=== PATIENT | male | born 1955 | race Caucasian/White ===

== ENCOUNTER 2018-04-13 15:01 | Inpatient (IN) | payer MEDICAID ==
[~2018-04-13] VITALS: Ht 172.7 cm; Wt 61.7 kg
--- NOTE | ~2018-04-13 | DS ---
[place], [place] DISCHARGE SUMMARY NAME: LUPILLO HERRERA UNIT #: [id number] ROOM: 317 DOCTOR: KARNIE LOMAS MD BIRTHDATE: [birth year] DOS: 04/19/2018 CHIEF COMPLAINT: "I have been so depressed, was my only way out." HISTORY OF PRESENT ILLNESS: This is a 62-year-old white male who was admitted to the [facility] Unit at [facility] due to worsening depression with suicidal ideation and a plan. The patient states that he tried to kill himself with a gun on Tuesday, but before he could do this, his had called police to intervene and they brought him to the Emergency Room to be evaluated. The patient reports a lengthy history of alcohol abuse and he had been clean and sober for a long time until he relapsed. He went to [place] to detox, came home, felt increasingly depressed, so he drank again specifically to get the courage to kill himself. He has endorsed poor sleep with difficulty falling asleep, sleep continuity disturbance, supervisor photoengraving awakening, anergia, anhedonia, hopeless, helpless feelings, crying spells, and inability to cope. He also has poor appetite and has lost approximately 60 pounds in 2 years. He is admitted now to rule out any organic factors to attempt to stabilize on medication, to engage in individual and mckeon milieu activity and then determine the least restrictive environment to which he could be discharged too. SUMMARY OF HOSPITAL COURSE: The patient was admitted to the unit where screening examination showed him to have a low vitamin B12 level of 316 and for this reason, vitamin B12 injection of 1000 mcg IM monthly was given. Because of his significant sleep issue and poor appetite, Remeron was chosen as an antidepressant at a dose of 15 mg at bedtime. Initially, Vistaril 50 mg 3 times a day was used as an antianxiety agent and Rozerem was also used as a sleep aid, neither of these worked well. He continued to complain of depression with anxiety. Given his history of substance abuse, a non-addictive option was utilized one that would also augment the effectiveness of the antidepressant. Seroquel 50 mg 3 times a day was chosen. He did note that the nighttime dose was not strong enough to initiate sleep, so the dose was eventually increased to 50 mg twice daily and 100 mg at bedtime with good effect. He did request that he has one more night on this dose to make certain that it was consistent in work, which it did and when that had happened, he was discharged then back home. MENTAL STATUS AT DISCHARGE: The patient is alert and oriented to person, place, and time. Mood is euthymic. Affect appropriate. There is no terrie, hypomania or psychosis. He convincingly denies suicidal thoughts, homicidal thoughts or any self-injurious thoughts. Memory is fully intact. DIAGNOSIS AT DISCHARGE: Major depression, recurrent, severe. PLAN: All of his prescriptions have been written and will be sent with him. He will have followup in the community postdischarge. [place], [place] DISCHARGE SUMMARY NAME: LUPILLO HERRERA ACCLaura #: [id number] UNIT #: [id number] ROOM: [facility] DOCTOR: KARINE LOMAS MD BIRTHDATE: [birth year] KARINE LOMAS MD CM:DISCHARG [id number] KARINE LOMAS MD 04/19/181914 interface
--- NOTE | ~2018-04-13 | PR ---
[place], [place] PROGRESS NOTE NAME: LUPILLO HERRERA UNIT #: [id number] ROOM: 317 DOCTOR: KARINE LOMAS MD BIRTHDATE: [birth year] DOS: 04/17/2018 CHIEF COMPLAINT: "That new medicine works better, but I feel a little hungover. Is that normal?" SUMMARY OF THE VISIT: The patient was interviewed as he was resting in bed. He reports he got up, had breakfast and was in bed mainly because he was cold. He did report that he felt that the new medicine was more effective than the previous meds and that his anxiety level was much less. He did note; however, that he did have some ongoing somnolence from it and wondered if this was normal and if it would dissipate. He did state he slept better, but had some continued trouble with initiating sleep. MENTAL STATUS: He is alert and oriented. Mood does seem to be trending towards euthymia. Affect is more appropriate. There is no terrie, hypomania or psychosis. Short-term memory, long-term memory and intermediate memory are intact. PLAN: I will increase the Seroquel from 50 mg 3 times a day to 50 mg twice a day and 100 mg at bedtime. Continue to engage in individual and mckeon milieu activity, returning to the least restrictive environment when psychiatrically stable. KARINE LOMAS MD CM:PNTRANS 9 11 KARINE LOMAS MD 04/17/182209 interface
--- NOTE | ~2018-04-13 | PR ---
[place], [place] PROGRESS NOTE NAME: LUPILLO HERRERA UNIT #: [id number] ROOM: 317 DOCTOR: PHD FREIDA OVALLES BIRTHDATE: [birth year] DOS: 04/17/2018 SUBJECTIVE: Met with the patient for individual psychotherapy. The patient reported finding more of a "desire to live" over the weekend. Mood was anxious and depressed, and affect was restricted. He firmly denied suicidal and homicidal ideation. Discussed the patient's fears about his relationship and plans to maintain his sobriety. Utilize CBT and supportive therapy interventions, the patient appeared to benefit. Plan to continue as needed. Blanca Ovalles, CM:FOX [phone] PHD FREIDA OVALLES 04/18/18 0439 interface
--- NOTE | ~2018-04-13 | PR ---
[place], [place] PROGRESS NOTE NAME: LUPILLO HERRERA UNIT #: [id number] ROOM: 317 DOCTOR: KARINE LOMAS MD BIRTHDATE: [birth year] DOS: 04/15/2018 CHIEF COMPLAINT: "I didn't sleep at all dark." SUMMARY OF THE VISIT: The patient was interviewed as he sat at the end of the dining area, watching television. He reported that he tossed and turned all night and his anxiety through the day is through the roof. He outwardly does look anxious and he was wringing his hands constantly. He convincingly denies any medication side effects and denies any sedation, somnolence or other side effects. MENTAL STATUS: He is alert and oriented. Mood does seem to be depressed with anxious overtones. Affect is somewhat blunted. There is no terrie, hypomania or psychosis. Memory for the most part is intact. PLAN: I will increase his Vistaril from 50 mg 3 times a day to 100 mg 3 times a day, trying to use in a non-addictive agent. I will add Zyprexa at bedtime 5 mg to augment the effectiveness of the antidepressant as well as to help with the anxiety component, improving sleep and appetite along the way. Engage in individual and mckeon milieu activity with the plan to return to the least restrictive environment when psychiatrically stable. KARINE LOMAS MD CM:PNTRANS [id number] [phone] KARINE LOMAS MD 04/15/18 1537 interface
--- NOTE | ~2018-04-13 | PR ---
[place], [place] PROGRESS NOTE NAME: LUPILLO HERRERA UNIT #: [id number] ROOM: 317 DOCTOR: KARINE LOMAS MD BIRTHDATE: [birth year] DOS: 04/16/2018 CHIEF COMPLAINT: "One medicine made me feel like I was going to jump out of my skin." SUMMARY OF THE VISIT: The patient was interviewed as he was resting in bed. He reports that the Zyprexa made him feel more wild and anxious and somewhat on edge. He also states it woke him up and he did not sleep yet again. MENTAL STATUS: He is alert and oriented. Mood does still seem to be depressed with some anxious overtones, but the depression seems to be clearing and anxiety seems to be the most common symptom seen. There is no terrie, hypomania or psychosis. Memory is intact. PLAN: I will discontinue the Vistaril and the Zyprexa at this point due to ineffectiveness. I will change Rozerem to 8 mg at bedtime straight, not p.r.n. and add Seroquel 50 mg t.i.d. KARINE LOMAS MD CM:PNTRANS 1 25 KARINE LOMAS MD 04/16/182222 interface
--- NOTE | ~2018-04-13 | WRIGHTHP ---
[place], [place] PATIENT HISTORY AND PHYSICAL EXAM NAME: LUPILLO HERRERA UNIT #: [id number] ROOM: 317 DOCTOR: KARINE LOMAS MD BIRTHDATE: [birth year] DOS: 04/14/2018 INITIAL PSYCHIATRIC EVALUATION CHIEF COMPLAINT: "I have just been so depressed; was my only way out." HISTORY OF PRESENT ILLNESS: This is a 62-year-old white male who was admitted to the [facility] Unit at [facility] due to worsening depression with suicidal ideation and a plan. The patient states he tried to kill himself with a gun on Tuesday, but before he did this, his had called the police and they intervened and admitted him to the hospital. The patient reports he has a lengthy history of alcohol abuse and had been clean and sober for some time, but relapsed. He then went in to [place] detox, came back home, felt increasingly depressed and drank again so that he would have courage to kill himself. He endorses poor sleep with difficulty falling asleep, sleep continuity disturbance, glass cutter helper awakening, anergia, anhedonia, hopeless, helpless feelings, crying spells, and inability to cope. The patient reports he has lost approximately 60 pounds in 2 years because he has no appetite. He is admitted now to rule out any organic factors, to stabilize on medication, to engage in individual and mckeon milieu activity, returning then to the least restrictive environment when psychiatrically stable. PAST MEDICAL HISTORY: Remarkable for osteoarthritis, GERD, hyperlipidemia, chronic low back pain, protein calorie malnutrition, scoliosis, spinal stenosis, vitamin D deficiency. SOCIAL HISTORY: The patient is a recovering alcoholic who has relapsed. He does not use illicit drugs. He is a cigarette smoker and has been for some time. ALLERGIES: He lists allergies to CATS. FAMILY HISTORY: There is a family history of congestive heart failure and liver cancer. STRENGTHS: Willingness to seek help. Good verbal skills, ambulatory. WEAKNESSES: Chronic substance abuse issues, poor coping skills. MENTAL STATUS: He is alert and oriented to person, place and time. Mood is overwhelmingly depressed with anxious overtones. He endorses multiple neurovegetative symptoms including suicidal thoughts and a plan. There is no terrie or hypomania. There are no auditory or visual hallucinations. No delusions, no paranoia. Short term, intermediate and long-term memories are intact. DIAGNOSIS: Major depression, recurrent, severe. PLAN: Screening examination show him to have a low normal B12 level of 316. I will treat with vitamin B12 injection 1000 mcg IM monthly. I have already [place], [place] PATIENT HISTORY AND PHYSICAL EXAM NAME: LUPILLO HERRERA UNIT #: [id number] ROOM: 317 DOCTOR: KARINE LOMAS MD BIRTHDATE: [birth year] started him on Remeron 15 mg at bedtime for depression. I will add Vistaril 50 mg t.i.d. as a non-addictive antianxiety agent and also use Rozerem p.r.n. as a sleep agent. Engage in individual and mckeon milieu activity, consult Blanca Ovalles, a psychologist for counseling, returning then to the least restrictive environment when psychiatrically stable. KARINE LOMAS MD CM:HISPHYS:PATIENT HISTORY AND PHYSICAL EXAMINATION 9 KARINE LOMAS MD 04/14/18917 interface
--- NOTE | ~2018-04-13 | PR ---
[place], [place] PROGRESS NOTE NAME: LUPILLO HERRERA UNIT #: [id number] ROOM: 317 DOCTOR: KARINE LOMAS MD BIRTHDATE: [birth year] DOS: 04/18/2018 CHIEF COMPLAINT: "Doc, I slept well. That is the best I have slept in a long time." SUMMARY OF THE VISIT: The patient was interviewed as he was sitting finishing his breakfast with some male peers. He reported that he fell asleep quickly, slept through the night and feels rested. He would like to see if this happens the second night in a row and then feels confident he can be discharged. Mood does seem to be strongly trending towards euthymia and affect is more appropriate. MENTAL STATUS: He is alert and oriented to person, place and time. Mood does seem to be strongly trending towards euthymia and affect is more appropriate. There is no terrie, hypomania or psychosis. He convincingly denies suicidal thoughts, homicidal thoughts or any self-injurious thoughts. Memory for the most part is fully intact. PLAN: His prescriptions have already been prescribed to [facility]. We will monitor over the next 24 hours and proceed with discharge. KARINE LOMAS MD CM:PNTRANS 48 KARINE LOMAS MD 04/18/186 interface
[~2018-04-13 15:01] MED LIST: MELATONIN10 M2 PO; NICODERM T; OMEPRAZOLE D/R20 MG PO; PERCOCET 7.5-31 EACH PO
[2018-04-13 15:30] VITALS: BP 116/77
[2018-04-13 19:50] VITALS: BP 120/74
[2018-04-14 07:10] VITALS: BP 142/84
[2018-04-14 07:14] LABS: ALBUMIN 3.1 gm/dl (3.1-4.5); ALKALINE PHOSPHATASE 57 U/L (45-117); BUN 12 mg/dl (7-24); CHLORIDE 102 mmol/L (98-107); CREATININE 0.67 mg/dL (0.70-1.30); POTASSIUM 3.4 mmol/L (3.5-5.1); SGOT/AST 11 IU/L (3-35); SGPT/ALT 16 U/L (12-78); SODIUM 140 mmol/L (136-145); TOTAL PROTEIN 5.6 gm/dL (6.4-8.2)
[2018-04-14 20:00] VITALS: BP 115/68
[2018-04-15 07:57] VITALS: BP 121/80
[2018-04-15 19:48] VITALS: BP 108/69
[2018-04-16 07:50] VITALS: BP 114/78
[2018-04-16 20:03] VITALS: BP 113/60
[2018-04-17 07:44] VITALS: BP 117/76
[2018-04-17 19:28] VITALS: BP 113/63
[2018-04-18 07:34] VITALS: BP 144/64
[2018-04-18] MEDS ORDERED: B121000 MCG/1 IM (09:21)
[2018-04-18] MEDS ORDERED: QUETIAPINE FUM100 M3 PO (09:21)
[2018-04-18] MEDS ORDERED: QUETIAPINE FUMA50 M1 PO (09:21)
[2018-04-18] MEDS ORDERED: MIRTAZAPINE15 M2 PO (09:21)
[2018-04-18 19:46] VITALS: BP 126/72
[2018-04-19 07:48] VITALS: BP 117/65
[2018-06-21] MEDS ORDERED: PERCOCET 7.5-31 EACH PO (16:03)
== END 2018-04-19 14:06 | disposition home or self-care (01) | DRG 885 ==
LOC: 3N 15:01
PROVIDERS: Psychiatry & Neurology Psychiatry
DX: F33.2 Major depressive disorder, recurrent severe without psychotic features (principal); R45.851 Suicidal ideations; E44.1 Mild protein-calorie malnutrition; K21.9 Gastro-esophageal reflux disease without esophagitis; E87.6 Hypokalemia; E55.9 Vitamin D deficiency, unspecified; E78.5 Hyperlipidemia, unspecified; F10.21 Alcohol dependence, in remission; M41.9 Scoliosis, unspecified; M48.061 Spinal stenosis, lumbar region without neurogenic claudication; F41.9 Anxiety disorder, unspecified; M19.90 Unspecified osteoarthritis, unspecified site; G89.29 Other chronic pain; Z91.048 Other nonmedicinal substance allergy status; Z82.49 Family history of ischemic heart disease and other diseases of the circulatory system; Z80.8 Family history of malignant neoplasm of other organs or systems; Z71.6 Tobacco abuse counseling; Z72.0 Tobacco use; Z88.8 Allergy status to other drugs, medicaments and biological substances; Z79.899 Other long term (current) drug therapy; Z68.20 Body mass index [BMI] 20.0-20.9, adult

== ENCOUNTER 2018-05-20 18:46 | Inpatient (IN) | payer SELFPAY ==
[~2018-05-20] VITALS: Ht 172.7 cm; Wt 65.9 kg
--- NOTE | ~2018-05-20 | EKG ---
[place], [place] ELECTROCARDIOGRAM REPORT NAME: LUPILLO HERRERA UNIT #: [id number] ROOM: 525 DOCTOR: CARMEL DRAFT REPORT BIRTHDATE: [birth year] [facility] Test Date: 2018-05-20 Test Time: 21:58:08 Pat Name: LUPILLO HERRERA Department: Room: [facility] Gender: M Cone Treater: JOANNE : 1955 Requested By: MISHEL HERRERA Order Number: [id number] Reading MD: Santi Mcmillan MD Measurements Intervals [place] Rate: 80 P: 75 [place]: 168 QRS: 82 QRSD: 94 T: QT: 396 QTc: 457 Interpretive Statements Sinus rhythm Left atrial enlargement Borderline right axis deviation Anteroseptal infarct, old Borderline repolarization abnormality Compared to ECG 04/12/2018 07:24:08 Atrial abnormality now present Myocardial infarct finding now present Electronically Signed On 05-21-2018 11:03:01 PDT by Santi Mcmillan MD CM:EKGRPT:ELECTROCARDIOGRAM REPORT 1103 MISHEL BURT DRAFT REPORT MISHEL HERRERA M.D.
--- NOTE | ~2018-05-20 | EKG ---
[place], [place] ELECTROCARDIOGRAM REPORT NAME: LUPILLO HERRERA UNIT #: [id number] ROOM: 525 DOCTOR: CARMEL DRAFT REPORT BIRTHDATE: [birth year] [facility] Test Date: 2018-05-20 Test Time: 18:48:09 Pat Name: LUPILLO HERRERA Department: Room: [facility] Gender: M Warehouse Selector: ELISA : 1955 Requested By: MISHEL HERRERA Order Number: [id number] Reading MD: Santi Mcmillan MD Measurements Intervals [place] Rate: 114 P: 83 AK: 176 QRS: 79 QRSD: 91 T: -63 QT: 301 QTc: 415 Interpretive Statements Sinus tachycardia Right atrial enlargement Repol abnrm suggests ischemia, diffuse leads Compared to ECG 04/12/2018 07:24:08 Atrial abnormality now present Early repolarization now present Possible ischemia now present Sinus rhythm no longer present Electronically Signed On 05-21-2018 11:01:05 PDT by Santi Mcmillan MD CM:EKGRPT:ELECTROCARDIOGRAM REPORT [id number] MISHEL BURT DRAFT REPORT MISHEL HERRERA M.D.
--- NOTE | ~2018-05-20 | EKG ---
[place], [place] ELECTROCARDIOGRAM REPORT NAME: LUPILLO HERRERA UNIT #: [id number] ROOM: 525 DOCTOR: CARMEL DRAFT REPORT BIRTHDATE: [birth year] [facility] Test Date: 2018-05-21 Test Time: 00:34:09 Pat Name: LUPILLO HERRERA Department: Room: [facility] Gender: M Model Making Supervisor: TANESHA : 1955 Requested By: MISHEL HERRERA Order Number: [id number] Reading MD: Santi Mcmillan MD Measurements Intervals [place] Rate: 84 P: 79 [place]: 157 QRS: 77 QRSD: 92 T: 10 QT: 372 QTc: 440 Interpretive Statements Sinus rhythm Minimal ST depression, inferior leads Baseline wander in lead(s) V1,V4 Compared to ECG 04/12/2018 07:24:08 ST (T wave) deviation now present Electronically Signed On 05-21-2018 11:03:12 PDT by Santi Mcmillan MD CM:EKGRPT:ELECTROCARDIOGRAM REPORT [id number] 1103 MISHEL BURT DRAFT REPORT MISHEL HERRERA M.D.
[~2018-05-20 18:46] MED LIST changes: +B121000 MCG/1 IM; +MIRTAZAPINE15 M2 PO; +QUETIAPINE FUM100 M3 PO; +QUETIAPINE FUMA50 M1 PO
[2018-05-20 18:50] VITALS: BP 127/82
[2018-05-20 19:05] LABS: BASO # 0.1 10*3/uL (0.0-0.1); BASO % 0.7 % (0.0-1.0); EOS # 0.1 10*3/uL (0.0-0.4); EOS % 1.9 % (1.0-4.0); HEMATOCRIT 44.2 % (42.0-52.0); HEMOGLOBIN 15.5 g/dl (14.0-18.0); LYMPH # 2.8 10*3/uL (1.3-4.4); LYMPH % 40.5 % (27.0-41.0); MEAN CELL VOLUME 95.9 fl (80.0-94.0); MEAN CORPUSCULAR HGB 33.6 pg (27.0-31.0); MEAN CORPUSCULAR HGB CONC 35.1 g/dl (33.0-37.0); MEAN PLATELET VOLUME 8.3 fl (9.6-12.3); MONO # 0.4 10*3/uL (0.1-1.0); MONO % 5.4 % (3.0-9.0); NEUT # 3.5 10*3/uL (2.3-7.9); NEUT % 51.4 % (47.0-73.0); PLATELET COUNT AUTOMATED 177 10*3/uL (130-400); RED BLOOD COUNT 4.61 10*6/uL (4.50-5.90); RED CELL DISTRI WIDTH 14.7 % (0-14.5); WHITE BLOOD COUNT 6.8 10*3/uL (4.8-10.8)
[2018-05-20 19:15] LABS: ACT PARTIAL THROMBO TIME 24.1 SECONDS (20.8-31.5)
[2018-05-20 19:22] LABS: ALBUMIN 3.8 gm/dl (3.1-4.5); ALKALINE PHOSPHATASE 80 U/L (45-117); BUN 8 mg/dl (7-24); CHLORIDE 111 mmol/L (98-107); CREATININE 0.87 mg/dL (0.70-1.30); POTASSIUM 3.3 mmol/L (3.5-5.1); SGOT/AST 22 IU/L (3-35); SGPT/ALT 16 U/L (12-78); SODIUM 147 mmol/L (136-145); TOTAL PROTEIN 7.2 gm/dL (6.4-8.2)
[2018-05-20 19:24] LABS: TROPONIN I < 0.015 ng/ml (<0.045)
[2018-05-20 19:33] LABS: BILIRUBIN NEGATIVE (NEGATIVE); BLOOD 1+ (NEGATIVE); CLARITY SL CLOUDY (CLEAR); COLOR YELLOW (YELLOW); GLUCOSE NEGATIVE (NEGATIVE); KETONE NEGATIVE (NEGATIVE); LEUKO ESTERASE NEGATIVE (NEGATIVE); NITRITE NEGATIVE (NEGATIVE); SPECIFIC GRAVITY 1.025 (1.005-1.030); UROBILINOGEN 0.2 E.U./dl (0.2-1.0)
[2018-05-20 19:41] LABS: BACTERIA TRACE; EPITHELIAL CELLS 0-2; MUCOUS 1+; URINE AMPHETAMINES < 1000 (1000ng/ml); URINE BARBITURATES < 200 (200ng/ml); URINE BENZODIAZEPINES < 200 (200ng/ml); URINE CANNABINOIDS (THC) < 50 (50ng/ml); URINE COCAINE < 300 (300ng/ml); URINE METHADONE < 300 (300ng/ml); URINE OPIATES < 300 (300ng/ml)
[2018-05-20 19:42] LABS: URINE PHENCYCLIDINE < 25 (25ng/ml)
[2018-05-20 20:00] VITALS: BP 106/65
[2018-05-20 20:55] VITALS: BP 101/61
[2018-05-20 22:00] VITALS: BP 113/71
[2018-05-21] VITALS: BP 120/68
[2018-05-21 07:08] LABS: BASO % 0.6 % (0.0-1.0); EOS # 0.1 10*3/uL (0.0-0.4); EOS % 1.8 % (1.0-4.0); LYMPH # 1.5 10*3/uL (1.3-4.4); LYMPH % 22.6 % (27.0-41.0); MEAN CELL VOLUME 97.6 fl (80.0-94.0); MEAN CORPUSCULAR HGB 33.5 pg (27.0-31.0); MEAN CORPUSCULAR HGB CONC 34.3 g/dl (33.0-37.0); MEAN PLATELET VOLUME 8.8 fl (9.6-12.3); MONO # 0.5 10*3/uL (0.1-1.0); NEUT # 4.6 10*3/uL (2.3-7.9); NEUT % 67.6 % (47.0-73.0); PLATELET COUNT AUTOMATED 150 10*3/uL (130-400); RED BLOOD COUNT 3.79 10*6/uL (4.50-5.90); RED CELL DISTRI WIDTH 14.6 % (0-14.5); WHITE BLOOD COUNT 6.8 10*3/uL (4.8-10.8)
[2018-05-21 07:11] LABS: HEMOGLOBIN 12.7 g/dl (14.0-18.0)
[2018-05-21 07:15] LABS: BUN 11 mg/dl (7-24); CHLORIDE 108 mmol/L (98-107); CREATININE 0.82 mg/dL (0.70-1.30); PHOSPHOROUS 3.1 mg/dL (2.5-4.9); POTASSIUM 3.6 mmol/L (3.5-5.1); SODIUM 143 mmol/L (136-145)
[2018-05-21 07:23] LABS: ETHYL ALCOHOL < 3.0 mg/dl (<3)
[2018-05-21 08:00] VITALS: BP 126/62
[2018-05-21 08:15] VITALS: BP 148/88
[2018-05-21 12:00] VITALS: BP 148/88
[2018-05-21 16:00] VITALS: BP 136/77
[2018-05-21 20:00] VITALS: BP 136/74
[2018-05-22] VITALS: BP 130/67
[2018-05-22 06:48] LABS: ALBUMIN 3.4 gm/dl (3.1-4.5); ALKALINE PHOSPHATASE 108 U/L (45-117); BUN 10 mg/dl (7-24); CHLORIDE 107 mmol/L (98-107); CREATININE 0.77 mg/dL (0.70-1.30); PHOSPHOROUS 2.1 mg/dL (2.5-4.9); POTASSIUM 3.9 mmol/L (3.5-5.1); SGOT/AST 18 IU/L (3-35); SGPT/ALT 14 U/L (12-78); SODIUM 140 mmol/L (136-145); TOTAL PROTEIN 5.9 gm/dL (6.4-8.2)
[2018-05-22 07:03] LABS: HEMATOCRIT 34.9 % (42.0-52.0); HEMOGLOBIN 12.1 g/dl (14.0-18.0); MEAN CELL VOLUME 97.8 fl (80.0-94.0); MEAN CORPUSCULAR HGB 33.9 pg (27.0-31.0); MEAN CORPUSCULAR HGB CONC 34.7 g/dl (33.0-37.0); MEAN PLATELET VOLUME 9.7 fl (9.6-12.3); PLATELET COUNT AUTOMATED 125 10*3/uL (130-400); RED BLOOD COUNT 3.57 10*6/uL (4.50-5.90); RED CELL DISTRI WIDTH 14.3 % (0-14.5); WHITE BLOOD COUNT 9.8 10*3/uL (4.8-10.8)
[2018-05-22 07:52] VITALS: BP 134/80
[2018-05-22 08:00] VITALS: BP 120/68
[2018-05-22 08:12] LABS: BASOPHILS 1 % (0-1); PLATELET SUFFICIENCY LOW (NORMAL); SCHISTOCYTES FEW; TOTAL CELLS COUNTED 100 #CELLS
[2018-06-21] MEDS ORDERED: PERCOCET 7.5-31 EACH PO (16:03)
== END 2018-05-22 09:56 | disposition left against medical advice (07) | DRG 190 ==
LOC: ED 18:46 → EDHOLD 20:28 → 5E 20:28
PROVIDERS: Emergency Medicine; Internal Medicine; Nurse Practitioner Family; Student in an Organized Health Care Education/Training Program
DX: J44.0 Chronic obstructive pulmonary disease with (acute) lower respiratory infection (principal); J18.9 Pneumonia, unspecified organism; E87.0 Hyperosmolality and hypernatremia; F10.230 Alcohol dependence with withdrawal, uncomplicated; J98.01 Acute bronchospasm; J44.1 Chronic obstructive pulmonary disease with (acute) exacerbation; K21.9 Gastro-esophageal reflux disease without esophagitis; E87.6 Hypokalemia; E87.8 Other disorders of electrolyte and fluid balance, not elsewhere classified; E83.41 Hypermagnesemia; E83.51 Hypocalcemia; R00.0 Tachycardia, unspecified; D75.89 Other specified diseases of blood and blood-forming organs; R73.9 Hyperglycemia, unspecified; M41.9 Scoliosis, unspecified; M48.061 Spinal stenosis, lumbar region without neurogenic claudication; M19.90 Unspecified osteoarthritis, unspecified site; M54.5 Low back pain; E78.00 Pure hypercholesterolemia, unspecified; F41.9 Anxiety disorder, unspecified; F32.9 Major depressive disorder, single episode, unspecified; Z53.21 Procedure and treatment not carried out due to patient leaving prior to being seen by health care provider; F10.220 Alcohol dependence with intoxication, uncomplicated; R94.31 Abnormal electrocardiogram [ECG] [EKG]; G47.00 Insomnia, unspecified; G89.4 Chronic pain syndrome; R07.89 Other chest pain; Z72.0 Tobacco use; Z71.6 Tobacco abuse counseling; Z91.09 Other allergy status, other than to drugs and biological substances; Z79.899 Other long term (current) drug therapy; Z82.49 Family history of ischemic heart disease and other diseases of the circulatory system; Z82.0 Family history of epilepsy and other diseases of the nervous system; Z80.0 Family history of malignant neoplasm of digestive organs

== ENCOUNTER 2018-07-21 04:22 | Inpatient (IN) | payer SELFPAY ==
[2018-07-21] VITALS (7 sets, daily range): BP systolic 111–143; BP diastolic 67–82
[~2018-07-21] VITALS: Ht 172.7 cm; Wt 67.7 kg
--- NOTE | ~2018-07-21 | EKG ---
[place], [place] ELECTROCARDIOGRAM REPORT NAME: LUPILLO HERRERA UNIT #: [id number] ROOM: DOCTOR: EPIPHANY DRAFT REPORT BIRTHDATE: [birth year] [facility] Test Date: 2018-07-21 Test Time: 04:33:58 Pat Name: LUPILLO HERRERA Department: Room: Gender: Backup Sawyer: : 1955 Requested By: JG SHEEHAN Order Number: [id number] Reading MD: Measurements Intervals [place] Rate: 104 P: 81 [place]: 188 QRS: 84 QRSD: 98 T: -81 QT: 341 QTc: 449 Interpretive Statements Sinus tachycardia Biatrial enlargement Borderline right axis deviation Borderline repolarization abnormality Compared to ECG 06/21/2018 04:32:10 Atrial abnormality now present Sinus bradycardia no longer present CM:EKGRPT:ELECTROCARDIOGRAM REPORT 0433 [id number] JG DIXON DRAFT REPORT JG SHEEHAN DO
--- NOTE | ~2018-07-21 | EKG ---
[place], [place] ELECTROCARDIOGRAM REPORT NAME: LUPILLO HERRERA UNIT #: [id number] ROOM: 406 DOCTOR: CARMEL DRAFT REPORT BIRTHDATE: [birth year] [facility] Test Date: 2018-07-21 Test Time: 07:31:40 Pat Name: LUPILLO HERRERA Department: Room: 406 Gender: M Principal Technical Architect: : 1955 Requested By: JG SHEEHAN Order Number: [id number] Reading MD: Measurements Intervals [place] Rate: 78 P: 75 ID: 167 QRS: 76 QRSD: 97 T: 48 QT: 398 QTc: 454 Interpretive Statements Sinus rhythm Compared to ECG 06/21/2018 04:32:10 Sinus bradycardia no longer present CM:EKGRPT:ELECTROCARDIOGRAM REPORT 0731 0436 JG DIXON DRAFT REPORT JG SHEEHAN DO
--- NOTE | ~2018-07-21 | EKG ---
[place], [place] ELECTROCARDIOGRAM REPORT NAME: LUPILLO HERRERA UNIT #: [id number] ROOM: 406 DOCTOR: CARMEL DRAFT REPORT BIRTHDATE: [birth year] [facility] Test Date: 2018-07-21 Test Time: 10:28:13 Pat Name: LUPILLO HERRERA Department: Room: 406 Gender: M Health And Safety Specialist: : 1955 Requested By: JG SHEEHAN Order Number: [id number] Reading MD: Measurements Intervals [place] Rate: 87 P: 79 AL: 161 QRS: 79 QRSD: 91 T: 88 QT: 379 QTc: 456 Interpretive Statements Sinus rhythm Nonspecific T abnormalities, lateral leads Compared to ECG 06/21/2018 04:32:10 T-wave abnormality now present Sinus bradycardia no longer present CM:EKGRPT:ELECTROCARDIOGRAM REPORT 1028 0730 JG DIXON DRAFT REPORT JG SHEEHAN DO
[2018-07-21 04:50] LABS: BASO # 0.1 10*3/uL (0.0-0.1); BASO % 1.1 % (0.0-1.0); EOS # 0.2 10*3/uL (0.0-0.4); EOS % 2.5 % (1.0-4.0); HEMATOCRIT 48.3 % (42.0-52.0); HEMOGLOBIN 16.7 g/dl (14.0-18.0); LYMPH # 3.2 10*3/uL (1.3-4.4); LYMPH % 36.4 % (27.0-41.0); MEAN CORPUSCULAR HGB 34.6 pg (27.0-31.0); MEAN CORPUSCULAR HGB CONC 34.6 g/dl (33.0-37.0); MEAN PLATELET VOLUME 8.5 fl (9.6-12.3); MONO # 0.6 10*3/uL (0.1-1.0); MONO % 7.1 % (3.0-9.0); NEUT # 4.6 10*3/uL (2.3-7.9); NEUT % 52.6 % (47.0-73.0); PLATELET COUNT AUTOMATED 215 10*3/uL (130-400); RED BLOOD COUNT 4.83 10*6/uL (4.50-5.90); RED CELL DISTRI WIDTH 14.1 % (0-14.5); WHITE BLOOD COUNT 8.8 10*3/uL (4.8-10.8)
[2018-07-21 05:08] LABS: ALKALINE PHOSPHATASE 87 U/L (45-117); BUN 14 mg/dl (7-24); CHLORIDE 110 mmol/L (98-107); CREATININE 0.79 mg/dL (0.70-1.30); POTASSIUM 3.3 mmol/L (3.5-5.1); SGOT/AST 28 IU/L (3-35); SGPT/ALT 27 U/L (12-78); SODIUM 145 mmol/L (136-145); TOTAL PROTEIN 7.5 gm/dL (6.4-8.2)
[2018-07-21 05:09] LABS: TROPONIN I < 0.015 ng/ml (<0.045)
[2018-07-21] MEDS ORDERED: OMEPRAZOLE D/R20 MG PO (06:32)
[2018-07-21] MEDS ORDERED: PERCOCET 7.5-31 EACH PO (06:32)
[2018-07-21] MEDS ORDERED: MELATONIN10 M2 PO (06:33)
[2018-07-22] VITALS: BP 134/66
[2018-07-22 06:29] LABS: MEAN CORPUSCULAR HGB 34.9 pg (27.0-31.0); MEAN CORPUSCULAR HGB CONC 33.9 g/dl (33.0-37.0); MEAN PLATELET VOLUME 9.2 fl (9.6-12.3); PLATELET COUNT AUTOMATED 151 10*3/uL (130-400); RED BLOOD COUNT 3.75 10*6/uL (4.50-5.90); WHITE BLOOD COUNT 14.8 10*3/uL (4.8-10.8)
[2018-07-22 06:41] LABS: HEMATOCRIT 38.7 % (42.0-52.0); HEMOGLOBIN 13.1 g/dl (14.0-18.0); MEAN CELL VOLUME 103.2 fl (80.0-94.0)
[2018-07-22 06:55] LABS: ALBUMIN 3.3 gm/dl (3.1-4.5); BUN 21 mg/dl (7-24); CHLORIDE 103 mmol/L (98-107); CHOLESTEROL 166 mg/dL (<200); CREATININE 0.75 mg/dL (0.70-1.30); PHOSPHOROUS 2.9 mg/dL (2.5-4.9); POTASSIUM 4.2 mmol/L (3.5-5.1); SGPT/ALT 25 U/L (12-78); SODIUM 138 mmol/L (136-145); TRIGLYCERIDES 98 mg/dl (<150); VLDL CHOLESTEROL 20 mg/dL (6-40)
[2018-07-22 07:02] LABS: ALKALINE PHOSPHATASE 125 U/L (45-117); FREE T4 0.61 ng/dl (0.76-1.46); HDL CHOLESTEROL 100 mg/dl (40-60); LDL CHOLESTEROL 46 mg/dL (9-159); SGOT/AST 32 IU/L (3-35); THYROID STIM HORMONE (HS) 0.375 uIU/ml (0.358-4.75); TOTAL PROTEIN 6.2 gm/dL (6.4-8.2)
[2018-07-22 07:38] LABS: TOTAL CELLS COUNTED 100 #CELLS
[2018-07-22 07:39] LABS: PLATELET SUFFICIENCY NORMAL (NORMAL)
[2018-07-22 12:00] VITALS: BP 126/66
[2018-07-22 16:00] VITALS: BP 112/52
[2018-07-22 20:00] VITALS: BP 116/65
[2018-07-23] VITALS: BP 124/67
[2018-07-23 06:43] LABS: HEMATOCRIT 39.2 % (42.0-52.0); MEAN CELL VOLUME 103.7 fl (80.0-94.0); MEAN CORPUSCULAR HGB 34.4 pg (27.0-31.0); MEAN CORPUSCULAR HGB CONC 33.2 g/dl (33.0-37.0); MEAN PLATELET VOLUME 9.6 fl (9.6-12.3); PLATELET COUNT AUTOMATED 145 10*3/uL (130-400); RED BLOOD COUNT 3.78 10*6/uL (4.50-5.90); WHITE BLOOD COUNT 14.2 10*3/uL (4.8-10.8)
[2018-07-23 07:22] LABS: ALBUMIN 3.5 gm/dl (3.1-4.5); CHLORIDE 102 mmol/L (98-107); POTASSIUM 4.1 mmol/L (3.5-5.1); SODIUM 136 mmol/L (136-145)
[2018-07-23 07:28] LABS: PLATELET SUFFICIENCY NORMAL (NORMAL); TOTAL CELLS COUNTED 100 #CELLS
[2018-07-23 07:32] LABS: ALKALINE PHOSPHATASE 107 U/L (45-117); BUN 24 mg/dl (7-24); CREATININE 0.69 mg/dL (0.70-1.30); PHOSPHOROUS 2.3 mg/dL (2.5-4.9); SGOT/AST 21 IU/L (3-35); SGPT/ALT 25 U/L (12-78); TOTAL PROTEIN 6.3 gm/dL (6.4-8.2)
[2018-07-23 08:00] VITALS: BP 112/64
[2018-07-23 12:00] VITALS: BP 139/71
[2018-07-23 16:00] VITALS: BP 126/66
[2018-07-23 20:00] VITALS: BP 135/83
[2018-07-24] VITALS: BP 139/80
[2018-07-24 06:25] LABS: HEMATOCRIT 38.1 % (42.0-52.0); MEAN CELL VOLUME 101.3 fl (80.0-94.0); MEAN CORPUSCULAR HGB 34.6 pg (27.0-31.0); MEAN CORPUSCULAR HGB CONC 34.1 g/dl (33.0-37.0); MEAN PLATELET VOLUME 9.8 fl (9.6-12.3); PLATELET COUNT AUTOMATED 129 10*3/uL (130-400); RED BLOOD COUNT 3.76 10*6/uL (4.50-5.90); RED CELL DISTRI WIDTH 13.8 % (0-14.5); WHITE BLOOD COUNT 13.5 10*3/uL (4.8-10.8)
[2018-07-24 06:38] LABS: BUN 24 mg/dl (7-24); CHLORIDE 102 mmol/L (98-107); CREATININE 0.62 mg/dL (0.70-1.30); POTASSIUM 3.8 mmol/L (3.5-5.1); SODIUM 136 mmol/L (136-145)
[2018-07-24 06:50] LABS: TOTAL CELLS COUNTED 100 #CELLS
[2018-07-24 06:51] LABS: PLATELET SUFFICIENCY LOW (NORMAL)
[2018-07-24 08:00] VITALS: BP 132/78
[2018-07-24] MEDS ORDERED: LEVOFLOXACIN500 MG PO (10:04)
[2018-07-24] MEDS ORDERED: NATURE'S BLEND100 M2 PO (10:04)
[2018-07-24] MEDS ORDERED: OMEPRAZOLE D/R20 MG PO (10:04)
[2018-07-24] MEDS ORDERED: VITAMIN D5000 UNI1 PO (10:04)
[2018-07-24] MEDS ORDERED: PREDNISONE10 MG PO (10:04)
== END 2018-07-24 13:54 | disposition home or self-care (01) | DRG 191 ==
LOC: ED 04:22 → 4E 05:25 → EDHOLD 05:25 → 4E 05:58
PROVIDERS: Family Medicine; Internal Medicine; Student in an Organized Health Care Education/Training Program
DX: J44.1 Chronic obstructive pulmonary disease with (acute) exacerbation (principal); F10.239 Alcohol dependence with withdrawal, unspecified; R07.9 Chest pain, unspecified; K21.9 Gastro-esophageal reflux disease without esophagitis; M54.5 Low back pain; M41.9 Scoliosis, unspecified; M48.061 Spinal stenosis, lumbar region without neurogenic claudication; R74.8 Abnormal levels of other serum enzymes; D72.829 Elevated white blood cell count, unspecified; E83.39 Other disorders of phosphorus metabolism; M19.90 Unspecified osteoarthritis, unspecified site; D75.89 Other specified diseases of blood and blood-forming organs; R00.0 Tachycardia, unspecified; E87.8 Other disorders of electrolyte and fluid balance, not elsewhere classified; F41.9 Anxiety disorder, unspecified; F32.9 Major depressive disorder, single episode, unspecified; G89.29 Other chronic pain; E87.6 Hypokalemia; E83.41 Hypermagnesemia; E78.5 Hyperlipidemia, unspecified; Z72.0 Tobacco use; Z91.048 Other nonmedicinal substance allergy status; Z71.6 Tobacco abuse counseling; Z82.49 Family history of ischemic heart disease and other diseases of the circulatory system; Z80.0 Family history of malignant neoplasm of digestive organs; Z82.0 Family history of epilepsy and other diseases of the nervous system; Z79.899 Other long term (current) drug therapy; Z71.41 Alcohol abuse counseling and surveillance of alcoholic

== ENCOUNTER 2018-08-07 13:07 | Inpatient (IN) | payer MEDICAID ==
[~2018-08-07] VITALS: Ht 172.7 cm; Wt 62.7 kg
[~2018-08-07 13:07] MED LIST changes: +LEVOFLOXACIN500 MG PO; +NATURE'S BLEND100 M2 PO; +PREDNISONE10 MG PO; +VITAMIN D5000 UNI1 PO
[2018-08-07 13:10] VITALS: BP 145/88
[2018-08-07 13:25] LABS: BASO # 0.1 10*3/uL (0.0-0.1); BASO % 1.3 % (0.0-1.0); EOS # 0.1 10*3/uL (0.0-0.4); EOS % 1.5 % (1.0-4.0); HEMATOCRIT 44.4 % (42.0-52.0); HEMOGLOBIN 15.5 g/dl (14.0-18.0); LYMPH # 1.3 10*3/uL (1.3-4.4); LYMPH % 17.1 % (27.0-41.0); MEAN CELL VOLUME 98.9 fl (80.0-94.0); MEAN CORPUSCULAR HGB 34.5 pg (27.0-31.0); MEAN CORPUSCULAR HGB CONC 34.9 g/dl (33.0-37.0); MEAN PLATELET VOLUME 8.3 fl (9.6-12.3); MONO # 0.6 10*3/uL (0.1-1.0); MONO % 8.1 % (3.0-9.0); NEUT # 5.4 10*3/uL (2.3-7.9); NEUT % 71.6 % (47.0-73.0); PLATELET COUNT AUTOMATED 201 10*3/uL (130-400); RED BLOOD COUNT 4.49 10*6/uL (4.50-5.90); RED CELL DISTRI WIDTH 14.1 % (0-14.5); WHITE BLOOD COUNT 7.5 10*3/uL (4.8-10.8)
[2018-08-07 13:34] LABS: ACT PARTIAL THROMBO TIME 24.6 SECONDS (20.8-31.5); INTERNATIONAL NORM RATIO 0.9 (2.0-3.5)
[2018-08-07 13:43] LABS: ALBUMIN 3.8 gm/dl (3.1-4.5); ALKALINE PHOSPHATASE 90 U/L (45-117); BUN 14 mg/dl (7-24); CHLORIDE 105 mmol/L (98-107); CREATININE 0.79 mg/dL (0.70-1.30); POTASSIUM 3.4 mmol/L (3.5-5.1); SGOT/AST 47 IU/L (3-35); SGPT/ALT 38 U/L (12-78); SODIUM 143 mmol/L (136-145)
[2018-08-07 13:51] LABS: THYROID STIM HORMONE (HS) 0.814 uIU/ml (0.358-4.75)
[2018-08-07 14:01] LABS: BILIRUBIN NEGATIVE (NEGATIVE); BLOOD 1+ (NEGATIVE); CLARITY SL CLOUDY (CLEAR); COLOR YELLOW (YELLOW); GLUCOSE NEGATIVE (NEGATIVE); KETONE TRACE (NEGATIVE); LEUKO ESTERASE NEGATIVE (NEGATIVE); NITRITE NEGATIVE (NEGATIVE); SPECIFIC GRAVITY >= 1.030 (1.005-1.030); UROBILINOGEN 0.2 E.U./dl (0.2-1.0)
[2018-08-07 14:08] LABS: BACTERIA TRACE; CALCIUM OXALATE CRYSTALS 1+; EPITHELIAL CELLS 0-2; MUCOUS 1+; URINE AMPHETAMINES < 1000 (1000ng/ml); URINE BARBITURATES < 200 (200ng/ml); URINE BENZODIAZEPINES > 200 (200ng/ml); URINE CANNABINOIDS (THC) < 50 (50ng/ml); URINE COCAINE < 300 (300ng/ml); URINE METHADONE < 300 (300ng/ml); URINE OPIATES < 300 (300ng/ml); WBC 0-2 wbc/hpf (0-5)
[2018-08-07 14:10] LABS: URINE PHENCYCLIDINE < 25 (25ng/ml)
--- NOTE | 2018-08-07 14:30 | NUR ---
PATIENT ATE 75% OF LUNCH TRAY. REQUESTS SOMETHING TO HELP CALM HIM DOWN. NOTIFIED
--- NOTE | 2018-08-07 15:40 | NUR ---
PATIENT REPORTS HIGH ANXIETY PERSISITING
--- NOTE | 2018-08-07 16:11 | NUR ---
PATIENT DOSING AT TIMES IN BED RAILS UP
--- NOTE | 2018-08-07 16:18 | NUR ---
PATIENT NOW SITTING UP IN BED. PATIENT STATES THAT THE MEDICATION HAS NOT HELPED HIM AT ALL
--- NOTE | 2018-08-07 17:10 | NUR ---
PATIENT SITTING IN BED, RAILS UP
--- NOTE | 2018-08-07 19:05 | NUR ---
PATIENT IN VIEW OF NURSES STATION, RESTING IN BED. NO SIGNS OF DISTRESS NOTED. BED IN LOW POSITION, SIDE RAILS UPX2.
--- NOTE | 2018-08-07 20:32 | NUR ---
SPOKE WITH PINKY MOSLEY AND PROVIDED PATIENTS DEMOGRAPHICS. PER PINKY, SHE WILL BE IN TONIGHT TO SPEAK WITH PATIENT.
--- NOTE | 2018-08-07 21:44 | NUR ---
psychiatric assessment: met with client, he came in intoxicated and having suicidal ideation, no plan. when he was sober dr leung notified me, so i came in, client denies suicidal ideation, he said i feel stupid now. he said that he was feeling sad and he has been sober for about 14 years and then recently drank and was binge drinking since sat and he said he drinks vodka, we discussed that he does not meet criteria for inpatient psych admission, but we disussed his alcohol abuse and whether he thought that he might want to consider detoxing, he wants to move back to [place] [facility] where he is from and that is where his sponsors are, he would like to detox and then be fresh to go. he is not a present suicide risk, he is upset and we discussed at length his marriage which is the ferreira issue her, they are and she wants to take time because he lied to her about drinking. he is very upset about this but he knows that is probably why he feels in crisis. i did talk with dr macdonald about whether he would be a candidate for [facility], he did call the hospitalist and they did agree to take client. 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 discussed
--- NOTE | 2018-08-07 21:58 | NUR ---
client is not a risk for suicide or any self harm, he is cooperative and alret and oriented in all spheres, he wants to be detoxed and then move away and hope that he and his get back together. client has many years of sobriety so i encouraged client that he can do this again and to be positive about his future.
[2018-08-07 22:00] VITALS: BP 125/77
[2018-08-07 22:20] VITALS: BP 142/68
[2018-08-07 22:44] VITALS: BP 125/77
[2018-08-07 22:45] VITALS: BP 125/77
--- NOTE | 2018-08-07 22:45 | NUR ---
A 62, admitted to 5E, under the services of KEE العراقي DO with a diagnosis of DEPRESSION, ALCOHOLISM. Chief complaint is SUICIDAL IDEATION, ALCOHOLISM. Patient arrived via wheel chair from ER. Monitor applied. Initial assessment completed. Vital signs taken and recorded. KEE العراقي DO notified of admission to the unit. Orders received. See assessment for past medical history, medications and allergies. Patient and/or family oriented to unit. [facility] visitation policy reviewed. Clothing/patient valuable form completed. ROSALES HAMPTON
[2018-08-08] VITALS: BP 111/66
--- NOTE | 2018-08-08 00:18 | NUR ---
PT MEDICATED WITH PO MOTRIN FOR C/O LOWER BACK PAIN 04/10. SCHEDULED PO LIBRIUM ALSO ADMINISTERED PER ORDER. MVI INFUSION ALSO INITIATED AT THIS TIME. WILL MONITOR. CALL LIGHT LEFT IN REACH. BED ALARM INTACT.
--- NOTE | 2018-08-08 00:31 | NUR ---
NOTIFIED OF PATIENT'S REQUEST FOR HOME PERCOCET FOR C/O CHRONIC BACK PAIN. DISCUSSED HOME MED REC UP TO DATE. STATES NEW ORDERS TO FOLLOW. ALSO DISCUSSED PATIENT'S SUICIDE SCORE RISK OF 45 PER INPATIENT ADMISSION ASSESSMENT. DISCUSSED Q15M CHECKS IMPLEMENTED AND SHIFT DIRECTOR NOTIFIED. ALSO DISCUSSED PINKY MOSLEY SEEING PT IN ER AND CLEARING HIM. NO NEW ORDERS RECEIVED.
--- NOTE | 2018-08-08 01:52 | NUR ---
PATIENT MEDICATED WITH PO PERCOCET PER ORDER FOR C/O LOWER BACK PAIN 04/10. WILL MONITOR EFFECTIVENESS. EARLIER MOTRIN INEFFECTIVE PER PT. CALL LIGHT LEFT IN REACH.
--- NOTE | 2018-08-08 03:19 | NUR ---
NOTIFIED OF PATIENT'S REQUEST FOR NICOTINE PATCH. NOTIFIED THAT NICOTINE GUM WAS ORDERED, BUT THESE MEDS ARE UNAVAILABLE AT THIS TIME DUE TO IN HOUSE PHARMACY NOT HERE. NEW ORDERS TO FOLLOW PER
[2018-08-08 04:00] VITALS: BP 151/88
[2018-08-08 08:00] VITALS: BP 110/70
--- NOTE | 2018-08-08 08:12 | NUR ---
PERCOCET GIVEN UPON REQUEST FOR C/O PAIN TO BACK OF 04/10. WILL CONT TO MONITOR. CALL LIGHT IN REACH.
--- NOTE | 2018-08-08 09:12 | NUR ---
PT STATES PAIN IS NOW 7/10 AFTER PERCOCET WHICH IS NORMAL FOR HIM. PT REFUSED ANY TYLENOL OR IBUPROFEN AT THIS TIME. WILL CONT TO MONITOR. CALL LIGHT IN REACH.
[2018-08-08 12:00] VITALS: BP 108/87
--- NOTE | 2018-08-08 13:37 | NUR ---
C/O BACK PAIN OF 04/10. WILL CONT TO MONITOR. CALL LIGHT IN REACH.
--- NOTE | 2018-08-08 14:37 | NUR ---
PT STATES PAIN TO BACK AFTER RECEIVING PERCOCET IS 7/10. WILL CONT TO MONITOR. CALL LIGHT IN REACH.
[2018-08-09] VITALS: BP 120/78
[2018-08-09 02:00] VITALS: BP 110/59
--- NOTE | 2018-08-09 02:14 | NUR ---
PATIENT MEDICATED WITH PO PERCOCET PER PRN ORDER FOR C/O BACK PAIN 03/10. SCHEDULED PO LIBRIUM ALSO ADMINISTERED AT THIS TIME. WILL MONITOR EFFECTIVENESS. PT STATES EARLIER MEDICATIONS WERE EFFECTIVE IN HELPING HIS ANXIETY/HELPING HIM TO FEEL TIRED AND WITH HIS MUSCLE CRAMPS/RESTLESS LEGS. CALL LIGHT LEFT IN REACH.
--- NOTE | 2018-08-09 05:00 | NUR ---
PT MEDICATED WITH IV ATIVAN PER PRN ORDER. PATIENT VERY ANXIOUS WITH HR IN THE 110S. PT PACING AROUND ROOM ASKING TO GO HOME. RN TALKED WITH PT. DISCUSSED PROGRAM AND PLAN OF CARE. PATIENT AGREES TO STAY, BUT STILL REMAINS VERY ANXIOUS WITH MILD FELT, BUT NOT VISABLE TREMORS. WILL MONITOR. CALL LIGHT LEFT IN REACH.
--- NOTE | 2018-08-09 06:06 | NUR ---
NOTIFIED OF PATIENT IN ROOM FIDGETING AND PACING DESPITE IV ATIVAN GIVEN. PATIENT KEEPS WALKING OUT OF ROOM SAYING HE'S LEAVING. WHEN RN SAYS HE HAS NOT BEEN DISCHARGED, HE AGREES TO STAY. ALSO DISCUSSED HR 110S-120S DUE TO CONSTANT MOVEMENT AND FIDGETING. ALSO DISCUSSED PATIENT'S CIGARETTE CRAVING AND NICOTINE PATCH THAT WAS ADMINISTERED YESTERDAY. STATES SHE WILL D/C PATCH AND ORDER NICOTROL INHALER.
--- NOTE | 2018-08-09 06:31 | NUR ---
PATIENT LEFT AGAINST MEDICAL ADVICE AT THIS TIME. MONITOR REMOVED. HEPLOCK REMOVED. AND SHIFT DIRECTOR AWARE. PATIENT HAD POCKET KNIFE LOCKED IN [place]. PATIENT STATES HE DOES NOT WANT TO WAIT FOR THIS AND DOES NOT NEED IT. POCKET KNIFE DISPOSED OF IN SHARPS CONTAINER PER NURSING DIRECTORS ORDERS.
== END 2018-08-09 06:31 | disposition left against medical advice (07) | DRG 894 ==
LOC: ED 13:07 → 5E 21:46 → EDHOLD 21:46 → 5E 22:25
PROVIDERS: Emergency Medicine; ADMIT Internal Medicine
DX: F10.231 Alcohol dependence with withdrawal delirium (principal); E87.6 Hypokalemia; K21.9 Gastro-esophageal reflux disease without esophagitis; M41.9 Scoliosis, unspecified; M48.061 Spinal stenosis, lumbar region without neurogenic claudication; M19.90 Unspecified osteoarthritis, unspecified site; E78.5 Hyperlipidemia, unspecified; D75.89 Other specified diseases of blood and blood-forming organs; F41.9 Anxiety disorder, unspecified; Z71.6 Tobacco abuse counseling; J44.9 Chronic obstructive pulmonary disease, unspecified; E78.00 Pure hypercholesterolemia, unspecified; Z53.20 Procedure and treatment not carried out because of patient's decision for unspecified reasons; F10.220 Alcohol dependence with intoxication, uncomplicated; F17.210 Nicotine dependence, cigarettes, uncomplicated; Z82.49 Family history of ischemic heart disease and other diseases of the circulatory system; Z85.05 Personal history of malignant neoplasm of liver; Z79.899 Other long term (current) drug therapy

== ENCOUNTER 2018-08-18 07:42 | Emergency (ER) | payer MEDICAID ==
[~2018-08-18] VITALS: Ht 172.7 cm; Wt 62.6 kg
[2018-08-18 08:10] LABS: BASO # 0.1 10*3/uL (0.0-0.1); EOS # 0.2 10*3/uL (0.0-0.4); EOS % 3.5 % (1.0-4.0); HEMATOCRIT 45.1 % (42.0-52.0); LYMPH # 2.4 10*3/uL (1.3-4.4); LYMPH % 39.2 % (27.0-41.0); MEAN CELL VOLUME 98.5 fl (80.0-94.0); MEAN CORPUSCULAR HGB 34.9 pg (27.0-31.0); MEAN CORPUSCULAR HGB CONC 35.5 g/dl (33.0-37.0); MEAN PLATELET VOLUME 8.6 fl (9.6-12.3); MONO # 0.7 10*3/uL (0.1-1.0); MONO % 11.7 % (3.0-9.0); NEUT # 2.7 10*3/uL (2.3-7.9); NEUT % 44.3 % (47.0-73.0); PLATELET COUNT AUTOMATED 250 10*3/uL (130-400); RED BLOOD COUNT 4.58 10*6/uL (4.50-5.90); RED CELL DISTRI WIDTH 13.7 % (0-14.5); WHITE BLOOD COUNT 6.1 10*3/uL (4.8-10.8)
[2018-08-18 08:27] LABS: ALBUMIN 3.9 gm/dl (3.1-4.5); ALKALINE PHOSPHATASE 81 U/L (45-117); BUN 12 mg/dl (7-24); CHLORIDE 109 mmol/L (98-107); CREATININE 0.86 mg/dL (0.70-1.30); POTASSIUM 3.5 mmol/L (3.5-5.1); SGOT/AST 42 IU/L (3-35); SGPT/ALT 37 U/L (12-78); SODIUM 145 mmol/L (136-145); TOTAL PROTEIN 7.1 gm/dL (6.4-8.2)
[2018-08-18 08:28] LABS: URINE AMPHETAMINES < 1000 (1000ng/ml); URINE BARBITURATES < 200 (200ng/ml); URINE BENZODIAZEPINES > 200 (200ng/ml); URINE CANNABINOIDS (THC) < 50 (50ng/ml); URINE COCAINE < 300 (300ng/ml); URINE METHADONE < 300 (300ng/ml); URINE OPIATES < 300 (300ng/ml)
[2018-08-18 08:29] LABS: URINE PHENCYCLIDINE < 25 (25ng/ml)
== END 2018-08-18 22:57 | disposition home or self-care (01) ==
LOC: ED 07:42
PROVIDERS: Emergency Medicine
DX: F10.129 Alcohol abuse with intoxication, unspecified (principal); F17.200 Nicotine dependence, unspecified, uncomplicated; M41.80 Other forms of scoliosis, site unspecified; M48.061 Spinal stenosis, lumbar region without neurogenic claudication; M19.90 Unspecified osteoarthritis, unspecified site; J44.9 Chronic obstructive pulmonary disease, unspecified; F32.9 Major depressive disorder, single episode, unspecified; K21.9 Gastro-esophageal reflux disease without esophagitis; E78.5 Hyperlipidemia, unspecified; Y90.9 Presence of alcohol in blood, level not specified

== ENCOUNTER 2018-08-20 10:21 | Emergency (ER) | payer MEDICAID ==
[~2018-08-20] VITALS: Ht 172.7 cm; Wt 62.6 kg
--- NOTE | ~2018-08-20 | EKG ---
[place], [place] ELECTROCARDIOGRAM REPORT NAME: LUPILLO HERRERA UNIT #: [id number] ROOM: DOCTOR: EPIPHANY DRAFT REPORT BIRTHDATE: [birth year] [facility] Test Date: 2018-08-20 Test Time: 11:48:37 Pat Name: LUPILLO HERRERA Department: Room: [facility] Gender: M [employer] Machine Repairer: [id number] : 1955 Requested By: FAIZAN SINGH Order Number: [id number] Reading MD: Zana Rubin MD Measurements Intervals [place] Rate: 88 P: 91 ND: 166 QRS: 77 QRSD: 95 T: 43 QT: 375 QTc: 454 Interpretive Statements Sinus rhythm Probable left and right atrial enlargement Minimal ST depression, inferior leads Compared to ECG 07/21/2018 10:28:13 No significant change Electronically Signed On 08-20-2018 20:07:54 PST by Zana Rubin MD CM:EKGRPT:ELECTROCARDIOGRAM REPORT [id number] FAIZAN DIXON DRAFT REPORT FAIZAN SINGH DO
[2018-08-20 11:24] LABS: BASO % 0.4 % (0.0-1.0); EOS # 0.1 10*3/uL (0.0-0.4); EOS % 0.6 % (1.0-4.0); HEMATOCRIT 39.2 % (42.0-52.0); HEMOGLOBIN 13.8 g/dl (14.0-18.0); LYMPH # 1.7 10*3/uL (1.3-4.4); LYMPH % 16.3 % (27.0-41.0); MEAN CELL VOLUME 97.3 fl (80.0-94.0); MEAN CORPUSCULAR HGB 34.2 pg (27.0-31.0); MEAN CORPUSCULAR HGB CONC 35.2 g/dl (33.0-37.0); MEAN PLATELET VOLUME 8.7 fl (9.6-12.3); MONO # 0.7 10*3/uL (0.1-1.0); MONO % 6.9 % (3.0-9.0); NEUT # 7.7 10*3/uL (2.3-7.9); NEUT % 75.4 % (47.0-73.0); PLATELET COUNT AUTOMATED 179 10*3/uL (130-400); RED BLOOD COUNT 4.03 10*6/uL (4.50-5.90); RED CELL DISTRI WIDTH 13.5 % (0-14.5); WHITE BLOOD COUNT 10.2 10*3/uL (4.8-10.8)
[2018-08-20 11:40] LABS: ALKALINE PHOSPHATASE 72 U/L (45-117); BUN 9 mg/dl (7-24); CHLORIDE 103 mmol/L (98-107); CREATININE 0.65 mg/dL (0.70-1.30); PHOSPHOROUS 2.9 mg/dL (2.5-4.9); SGOT/AST 27 IU/L (3-35); SGPT/ALT 29 U/L (12-78); SODIUM 138 mmol/L (136-145); TOTAL PROTEIN 6.5 gm/dL (6.4-8.2)
[2018-08-20 11:59] LABS: ETHYL ALCOHOL < 3.0 mg/dl (<3); TROPONIN I < 0.015 ng/ml (<0.045)
[2018-08-21 00:55] LABS: URINE AMPHETAMINES < 1000 (1000ng/ml); URINE BARBITURATES < 200 (200ng/ml); URINE BENZODIAZEPINES > 200 (200ng/ml); URINE CANNABINOIDS (THC) < 50 (50ng/ml); URINE COCAINE < 300 (300ng/ml); URINE METHADONE < 300 (300ng/ml); URINE OPIATES < 300 (300ng/ml)
[2018-08-21 00:56] LABS: URINE PHENCYCLIDINE < 25 (25ng/ml)
[2018-08-22 05:28] LABS: BASO # 0.1 10*3/uL (0.0-0.1); BASO % 0.6 % (0.0-1.0); EOS # 0.2 10*3/uL (0.0-0.4); EOS % 1.5 % (1.0-4.0); HEMATOCRIT 39.2 % (42.0-52.0); HEMOGLOBIN 13.4 g/dl (14.0-18.0); LYMPH # 1.5 10*3/uL (1.3-4.4); LYMPH % 14.8 % (27.0-41.0); MEAN CELL VOLUME 99.7 fl (80.0-94.0); MEAN CORPUSCULAR HGB 34.1 pg (27.0-31.0); MEAN CORPUSCULAR HGB CONC 34.2 g/dl (33.0-37.0); MEAN PLATELET VOLUME 8.9 fl (9.6-12.3); MONO # 0.7 10*3/uL (0.1-1.0); MONO % 6.9 % (3.0-9.0); NEUT # 7.8 10*3/uL (2.3-7.9); NEUT % 75.6 % (47.0-73.0); PLATELET COUNT AUTOMATED 151 10*3/uL (130-400); RED BLOOD COUNT 3.93 10*6/uL (4.50-5.90); RED CELL DISTRI WIDTH 13.3 % (0-14.5); WHITE BLOOD COUNT 10.4 10*3/uL (4.8-10.8)
[2018-08-22 05:44] LABS: ALBUMIN 3.4 gm/dl (3.1-4.5); ALKALINE PHOSPHATASE 128 U/L (45-117); BUN 14 mg/dl (7-24); CHLORIDE 107 mmol/L (98-107); CREATININE 0.82 mg/dL (0.70-1.30); POTASSIUM 4.1 mmol/L (3.5-5.1); SGOT/AST 14 IU/L (3-35); SGPT/ALT 21 U/L (12-78); SODIUM 139 mmol/L (136-145); TOTAL PROTEIN 5.9 gm/dL (6.4-8.2)
[2018-08-22 05:47] LABS: ETHYL ALCOHOL < 3.0 mg/dl (<3)
== END 2018-08-22 15:46 | disposition short-term general hospital (02) ==
LOC: ED 10:21
PROVIDERS: Emergency Medicine; Family Medicine
DX: F32.9 Major depressive disorder, single episode, unspecified (principal); R45.851 Suicidal ideations; F41.9 Anxiety disorder, unspecified; E78.5 Hyperlipidemia, unspecified; K21.9 Gastro-esophageal reflux disease without esophagitis; J44.9 Chronic obstructive pulmonary disease, unspecified; M19.90 Unspecified osteoarthritis, unspecified site; F17.200 Nicotine dependence, unspecified, uncomplicated

== ENCOUNTER 2020-10-20 10:31 | Inpatient (IN) | payer OTHER ==
[2020-10-20] VITALS (7 sets, daily range): BP systolic 120–168; BP diastolic 68–105
[~2020-10-20] VITALS: Ht 175.2 cm; Wt 75.3 kg
[2020-10-20 11:04] LABS: BASO % 0.9 % (0.0-1.0); HEMATOCRIT 34.8 % (42.0-52.0); LYMPH # 0.3 10*3/uL (1.3-4.4); LYMPH % 8.8 % (27.0-41.0); MEAN CELL VOLUME 95.3 fl (80.0-94.0); MEAN CORPUSCULAR HGB 32.3 pg (27.0-31.0); MEAN CORPUSCULAR HGB CONC 33.9 g/dl (33.0-37.0); MEAN PLATELET VOLUME 9.2 fl (9.6-12.3); MONO # 0.2 10*3/uL (0.1-1.0); MONO % 5.3 % (3.0-9.0); NEUT # 2.7 10*3/uL (2.3-7.9); NEUT % 84.4 % (47.0-73.0); PLATELET COUNT AUTOMATED 67 10*3/uL (130-400); RED BLOOD COUNT 3.65 10*6/uL (4.50-5.90); RED CELL DISTRI WIDTH 14.3 % (0-14.5); WHITE BLOOD COUNT 3.2 10*3/uL (4.8-10.8)
[2020-10-20 11:20] LABS: ALKALINE PHOSPHATASE 91 U/L (45-117); BUN 5 mg/dl (7-24); CHLORIDE 94 mmol/L (98-107); CPK 339 U/L (39-308); CREATININE 1.25 mg/dL (0.70-1.30); POTASSIUM 2.5 mmol/L (3.5-5.1); SGPT/ALT 83 U/L (12-78); SODIUM 138 mmol/L (136-145); TOTAL PROTEIN 6.2 gm/dL (6.4-8.2)
[2020-10-20 11:36] LABS: SGOT/AST 553 IU/L (3-35)
[2020-10-20 11:38] LABS: TROPONIN I < 0.015 ng/ml (<0.045)
[2020-10-20 13:20] LABS: URINE AMPHETAMINES < 1000 (1000ng/ml); URINE BARBITURATES < 200 (200ng/ml); URINE BENZODIAZEPINES < 200 (200ng/ml); URINE CANNABINOIDS (THC) < 50 (50ng/ml); URINE COCAINE < 300 (300ng/ml); URINE METHADONE < 300 (300ng/ml); URINE OPIATES < 300 (300ng/ml); URINE PHENCYCLIDINE < 25 (25ng/ml)
[2020-10-20 13:25] LABS: BILIRUBIN 1+ (Negative); BLOOD Trace-Intact (Negative); CLARITY Clear (Clear); COLOR Dark Yellow (Yellow); GLUCOSE 1+ (Negative); KETONE 1+ (Negative); LEUKO ESTERASE Negative (Negative); NITRITE Negative (Negative)
[2020-10-20 13:42] LABS: BACTERIA TRACE
[2020-10-20 14:32] LABS: LIPASE 106 U/L (73-393)
[2020-10-20 14:32] LABS: INTERNATIONAL NORM RATIO 1.3 (2.0-3.5)
[2020-10-20 18:13] LABS: BUN 5 mg/dl (7-24); CHLORIDE 98 mmol/L (98-107); CREATININE 0.86 mg/dL (0.70-1.30); POTASSIUM 3.2 mmol/L (3.5-5.1); SODIUM 142 mmol/L (136-145)
[2020-10-21] VITALS: BP 103/83
[2020-10-21 04:00] VITALS: BP 117/81
[2020-10-21 05:27] LABS: ALBUMIN 3.1 gm/dl (3.1-4.5); ALKALINE PHOSPHATASE 114 U/L (45-117); BUN 7 mg/dl (7-24); CHLORIDE 100 mmol/L (98-107); CHOLESTEROL 123 mg/dL (<200); CREATININE 0.67 mg/dL (0.70-1.30); HDL CHOLESTEROL 99 mg/dl (40-60); LDL CHOLESTEROL 9 mg/dL (9-159); POTASSIUM 2.9 mmol/L (3.5-5.1); SGPT/ALT 452 U/L (12-78); SODIUM 143 mmol/L (136-145); TOTAL PROTEIN 6.1 gm/dL (6.4-8.2); TRIGLYCERIDES 73 mg/dl (<150); VLDL CHOLESTEROL 15 mg/dL (6-40)
[2020-10-21 05:56] LABS: SGOT/AST 3847 IU/L (3-35)
[2020-10-21 06:15] LABS: BASO % 0.3 % (0.0-1.0); EOS % 0.2 % (1.0-4.0); HEMATOCRIT 34.6 % (42.0-52.0); LYMPH # 0.5 10*3/uL (1.3-4.4); LYMPH % 7.4 % (27.0-41.0); MEAN CELL VOLUME 97.2 fl (80.0-94.0); MEAN CORPUSCULAR HGB 32.9 pg (27.0-31.0); MEAN CORPUSCULAR HGB CONC 33.8 g/dl (33.0-37.0); MEAN PLATELET VOLUME 10.5 fl (9.6-12.3); MONO # 0.3 10*3/uL (0.1-1.0); MONO % 4.4 % (3.0-9.0); NEUT # 5.8 10*3/uL (2.3-7.9); NEUT % 87.4 % (47.0-73.0); PLATELET COUNT AUTOMATED 64 10*3/uL (130-400); RED BLOOD COUNT 3.56 10*6/uL (4.50-5.90); RED CELL DISTRI WIDTH 14.9 % (0-14.5); WHITE BLOOD COUNT 6.6 10*3/uL (4.8-10.8)
[2020-10-21 06:17] LABS: INTERNATIONAL NORM RATIO 2.1 (2.0-3.5)
[2020-10-21 08:00] VITALS: BP 118/82
[2020-10-21 12:00] VITALS: BP 115/79
[2020-10-21 16:00] VITALS: BP 107/59
[2020-10-21 20:00] VITALS: BP 105/64
[2020-10-22] VITALS: BP 113/64
[2020-10-22 04:00] VITALS: BP 109/61
[2020-10-22 06:07] LABS: HEP B CORE AB, IGM Negative (Negative); HEPATITIS B SURFACE AG Negative (Negative); HEPATITIS C VIRUS ANTIBODY <0.1 s/co (0.0-0.9)
[2020-10-22 06:13] LABS: INTERNATIONAL NORM RATIO 2.6 (2.0-3.5)
[2020-10-22 06:17] LABS: ALBUMIN 2.8 gm/dl (3.1-4.5); BASO % 0.4 % (0.0-1.0); BUN 16 mg/dl (7-24); CHLORIDE 102 mmol/L (98-107); CREATININE 1.03 mg/dL (0.70-1.30); EOS % 0.1 % (1.0-4.0); LYMPH # 0.5 10*3/uL (1.3-4.4); LYMPH % 6.5 % (27.0-41.0); MEAN CELL VOLUME 98.8 fl (80.0-94.0); MEAN CORPUSCULAR HGB 32.6 pg (27.0-31.0); MEAN CORPUSCULAR HGB CONC 32.9 g/dl (33.0-37.0); MEAN PLATELET VOLUME 10.8 fl (9.6-12.3); MONO # 0.3 10*3/uL (0.1-1.0); MONO % 4.4 % (3.0-9.0); NEUT # 6.4 10*3/uL (2.3-7.9); NEUT % 88.2 % (47.0-73.0); PLATELET COUNT AUTOMATED 68 10*3/uL (130-400); POTASSIUM 3.3 mmol/L (3.5-5.1); RED BLOOD COUNT 3.44 10*6/uL (4.50-5.90); RED CELL DISTRI WIDTH 15.6 % (0-14.5); SODIUM 144 mmol/L (136-145); WHITE BLOOD COUNT 7.2 10*3/uL (4.8-10.8)
[2020-10-22 06:30] LABS: TOTAL PROTEIN 5.3 gm/dL (6.4-8.2)
[2020-10-22 06:51] LABS: ALKALINE PHOSPHATASE 121 U/L (45-117); SGOT/AST 7668 IU/L (3-35); SGPT/ALT 1134 U/L (12-78)
[2020-10-22 08:00] VITALS: BP 106/58
[2020-10-22 12:00] VITALS: BP 108/59
[2020-10-22] MEDS ORDERED: ENOXAPARIN40 MG/0.2 SC (12:38)
[2020-10-22 15:30] VITALS: BP 108/71
== END 2020-10-22 16:36 | disposition short-term general hospital (02) | DRG 441 ==
LOC: ED 10:31 → EDHOLD 13:16 → ICCU 13:16
PROVIDERS: Emergency Medicine; Family Medicine; Internal Medicine; ADMIT Internal Medicine; ATTEND Internal Medicine
DX: K72.00 Acute and subacute hepatic failure without coma (principal); G93.41 Metabolic encephalopathy; F10.239 Alcohol dependence with withdrawal, unspecified; E44.0 Moderate protein-calorie malnutrition; R44.1 Visual hallucinations; S05.11XA Contusion of eyeball and orbital tissues, right eye, initial encounter; E83.42 Hypomagnesemia; K21.9 Gastro-esophageal reflux disease without esophagitis; F32.9 Major depressive disorder, single episode, unspecified; E87.6 Hypokalemia; F41.9 Anxiety disorder, unspecified; J44.9 Chronic obstructive pulmonary disease, unspecified; S80.212A Abrasion, left knee, initial encounter; D72.819 Decreased white blood cell count, unspecified; E87.8 Other disorders of electrolyte and fluid balance, not elsewhere classified; E80.6 Other disorders of bilirubin metabolism; D64.9 Anemia, unspecified; R73.9 Hyperglycemia, unspecified; E16.2 Hypoglycemia, unspecified; Z91.048 Other nonmedicinal substance allergy status; Z85.05 Personal history of malignant neoplasm of liver; Z82.49 Family history of ischemic heart disease and other diseases of the circulatory system; W18.39XA Other fall on same level, initial encounter; Y93.89 Activity, other specified; Y92.89 Other specified places as the place of occurrence of the external cause; Y99.8 Other external cause status; Z68.24 Body mass index [BMI] 24.0-24.9, adult

== ENCOUNTER 2020-11-12 05:15 | Inpatient (IN) | payer OTHER ==
[2020-11-12] VITALS (7 sets, daily range): BP systolic 111–148; BP diastolic 74–84
[~2020-11-12] VITALS: Ht 175.2 cm; Wt 69.9 kg
[~2020-11-12 05:15] MED LIST changes: +ENOXAPARIN40 MG/0.2 SC
[2020-11-12 05:53] LABS: BASO # 0.1 10*3/uL (0.0-0.1); BASO % 0.4 % (0.0-1.0); EOS % 0.2 % (1.0-4.0); HEMATOCRIT 41.6 % (42.0-52.0); LYMPH # 1.6 10*3/uL (1.3-4.4); MEAN CELL VOLUME 97.9 fl (80.0-94.0); MEAN CORPUSCULAR HGB 33.6 pg (27.0-31.0); MEAN CORPUSCULAR HGB CONC 34.4 g/dl (33.0-37.0); MEAN PLATELET VOLUME 8.8 fl (9.6-12.3); MONO # 0.9 10*3/uL (0.1-1.0); MONO % 7.4 % (3.0-9.0); NEUT # 9.8 10*3/uL (2.3-7.9); NEUT % 78.6 % (47.0-73.0); PLATELET COUNT AUTOMATED 273 10*3/uL (130-400); RED BLOOD COUNT 4.25 10*6/uL (4.50-5.90); RED CELL DISTRI WIDTH 14.1 % (0-14.5); WHITE BLOOD COUNT 12.5 10*3/uL (4.8-10.8)
[2020-11-12 06:11] LABS: ALBUMIN 3.3 gm/dl (3.1-4.5); ALKALINE PHOSPHATASE 114 U/L (45-117); BUN 5 mg/dl (7-24); CHLORIDE 102 mmol/L (98-107); CREATININE 0.63 mg/dL (0.70-1.30); POTASSIUM 2.7 mmol/L (3.5-5.1); SGOT/AST 88 IU/L (3-35); SGPT/ALT 85 U/L (12-78); SODIUM 141 mmol/L (136-145); TOTAL PROTEIN 6.9 gm/dL (6.4-8.2)
[2020-11-12 06:14] LABS: TROPONIN I < 0.015 ng/ml (<0.045)
[2020-11-12] MEDS ORDERED: NATURE'S BLEND F1 MG PO (09:46)
[2020-11-12] MEDS ORDERED: HYDROXYZINE HCL25 MG PO (09:47)
[2020-11-13] VITALS: BP 141/83
[2020-11-13 05:26] LABS: ALBUMIN 2.6 gm/dl (3.1-4.5); BUN 6 mg/dl (7-24); CHLORIDE 106 mmol/L (98-107); CREATININE 0.58 mg/dL (0.70-1.30); POTASSIUM 2.8 mmol/L (3.5-5.1); SGOT/AST 47 IU/L (3-35); SGPT/ALT 53 U/L (12-78); SODIUM 141 mmol/L (136-145); TOTAL PROTEIN 5.3 gm/dL (6.4-8.2)
[2020-11-13 05:27] LABS: ALKALINE PHOSPHATASE 87 U/L (45-117)
[2020-11-13 06:23] LABS: BASO % 0.5 % (0.0-1.0); EOS # 0.1 10*3/uL (0.0-0.4); EOS % 0.9 % (1.0-4.0); HEMATOCRIT 33.3 % (42.0-52.0); LYMPH # 1.3 10*3/uL (1.3-4.4); LYMPH % 15.4 % (27.0-41.0); MEAN CORPUSCULAR HGB 33.8 pg (27.0-31.0); MEAN CORPUSCULAR HGB CONC 33.3 g/dl (33.0-37.0); MEAN PLATELET VOLUME 9.6 fl (9.6-12.3); MONO # 0.5 10*3/uL (0.1-1.0); MONO % 5.8 % (3.0-9.0); NEUT # 6.6 10*3/uL (2.3-7.9); NEUT % 76.9 % (47.0-73.0); RED BLOOD COUNT 3.28 10*6/uL (4.50-5.90); RED CELL DISTRI WIDTH 13.5 % (0-14.5); WHITE BLOOD COUNT 8.6 10*3/uL (4.8-10.8)
[2020-11-13 06:25] LABS: MEAN CELL VOLUME 101.5 fl (80.0-94.0); PLATELET COUNT AUTOMATED 172 10*3/uL (130-400)
[2020-11-13 08:00] VITALS: BP 127/70
[2020-11-13 12:00] VITALS: BP 123/83
[2020-11-13 16:00] VITALS: BP 127/80
[2020-11-13 20:00] VITALS: BP 115/76
[2020-11-14] VITALS: BP 126/85
[2020-11-14 06:12] LABS: ALBUMIN 2.9 gm/dl (3.1-4.5); ALKALINE PHOSPHATASE 100 U/L (45-117); BUN 4 mg/dl (7-24); CHLORIDE 109 mmol/L (98-107); CREATININE 0.66 mg/dL (0.70-1.30); POTASSIUM 2.8 mmol/L (3.5-5.1); SGOT/AST 34 IU/L (3-35); SGPT/ALT 46 U/L (12-78); SODIUM 143 mmol/L (136-145); TOTAL PROTEIN 5.9 gm/dL (6.4-8.2)
[2020-11-14 06:13] LABS: BASO # 0.1 10*3/uL (0.0-0.1); BASO % 0.5 % (0.0-1.0); EOS # 0.2 10*3/uL (0.0-0.4); EOS % 1.7 % (1.0-4.0); HEMATOCRIT 34.4 % (42.0-52.0); LYMPH # 1.7 10*3/uL (1.3-4.4); LYMPH % 18.4 % (27.0-41.0); MEAN CELL VOLUME 101.5 fl (80.0-94.0); MEAN CORPUSCULAR HGB 33.9 pg (27.0-31.0); MEAN CORPUSCULAR HGB CONC 33.4 g/dl (33.0-37.0); MEAN PLATELET VOLUME 9.6 fl (9.6-12.3); MONO # 0.5 10*3/uL (0.1-1.0); MONO % 5.7 % (3.0-9.0); NEUT # 6.9 10*3/uL (2.3-7.9); NEUT % 73.3 % (47.0-73.0); PLATELET COUNT AUTOMATED 149 10*3/uL (130-400); RED BLOOD COUNT 3.39 10*6/uL (4.50-5.90); RED CELL DISTRI WIDTH 13.2 % (0-14.5); WHITE BLOOD COUNT 9.5 10*3/uL (4.8-10.8)
[2020-11-14 08:00] VITALS: BP 123/71
[2020-11-14 12:00] VITALS: BP 110/60
[2020-11-14 20:00] VITALS: BP 124/71
[2020-11-15] VITALS: BP 133/83
[2020-11-15 06:23] LABS: BUN 4 mg/dl (7-24); CHLORIDE 109 mmol/L (98-107); CREATININE 0.72 mg/dL (0.70-1.30); POTASSIUM 3.3 mmol/L (3.5-5.1); SODIUM 141 mmol/L (136-145)
[2020-11-15 08:00] VITALS: BP 123/75; BP 126/76
[2020-11-15 12:00] VITALS: BP 137/83
[2020-11-15 16:00] VITALS: BP 128/87
[2020-11-15 20:00] VITALS: BP 129/91
[2020-11-16] VITALS: BP 148/94
[2020-11-16 05:42] LABS: BUN 6 mg/dl (7-24); CHLORIDE 110 mmol/L (98-107); CREATININE 1.07 mg/dL (0.70-1.30); POTASSIUM 3.5 mmol/L (3.5-5.1); SODIUM 141 mmol/L (136-145)
[2020-11-16 06:05] LABS: BASO % 0.3 % (0.0-1.0); EOS # 0.4 10*3/uL (0.0-0.4); HEMATOCRIT 35.3 % (42.0-52.0); LYMPH # 1.5 10*3/uL (1.3-4.4); LYMPH % 11.7 % (27.0-41.0); MEAN CELL VOLUME 101.4 fl (80.0-94.0); MEAN CORPUSCULAR HGB 34.8 pg (27.0-31.0); MEAN CORPUSCULAR HGB CONC 34.3 g/dl (33.0-37.0); MEAN PLATELET VOLUME 9.7 fl (9.6-12.3); MONO # 0.8 10*3/uL (0.1-1.0); MONO % 6.3 % (3.0-9.0); NEUT # 9.8 10*3/uL (2.3-7.9); NEUT % 78.3 % (47.0-73.0); PLATELET COUNT AUTOMATED 121 10*3/uL (130-400); RED BLOOD COUNT 3.48 10*6/uL (4.50-5.90); RED CELL DISTRI WIDTH 13.2 % (0-14.5); WHITE BLOOD COUNT 12.6 10*3/uL (4.8-10.8)
[2020-11-16 08:00] VITALS: BP 134/77
[2020-11-16 12:00] VITALS: BP 129/82
[2020-11-16 16:00] VITALS: BP 131/90
[2020-11-16 20:00] VITALS: BP 129/87
[2020-11-17 00:40] VITALS: BP 140/84
== END 2020-11-17 07:47 | disposition left against medical advice (07) | DRG 871 ==
LOC: ED 05:15 → 4E 08:55 → EDHOLD 08:55 → 4E 09:42
PROVIDERS: Internal Medicine; Registered Nurse; Social Worker Clinical; ADMIT Internal Medicine; ATTEND Internal Medicine
PROC: BD11YZZ Fluoroscopy of Esophagus using Other Contrast (ICD-10-PCS; principal; 2020-11-13)
DX: A41.9 Sepsis, unspecified organism (principal); J15.6 Pneumonia due to other Gram-negative bacteria; E43 Unspecified severe protein-calorie malnutrition; J96.01 Acute respiratory failure with hypoxia; E87.2 Acidosis; J44.0 Chronic obstructive pulmonary disease with (acute) lower respiratory infection; F10.231 Alcohol dependence with withdrawal delirium; J98.11 Atelectasis; R65.20 Severe sepsis without septic shock; Z53.29 Procedure and treatment not carried out because of patient's decision for other reasons; K72.90 Hepatic failure, unspecified without coma; Y90.9 Presence of alcohol in blood, level not specified; D53.9 Nutritional anemia, unspecified; E87.6 Hypokalemia; E80.6 Other disorders of bilirubin metabolism; R74.01 Elevation of levels of liver transaminase levels; K21.9 Gastro-esophageal reflux disease without esophagitis; F17.200 Nicotine dependence, unspecified, uncomplicated; Z82.49 Family history of ischemic heart disease and other diseases of the circulatory system; Z88.8 Allergy status to other drugs, medicaments and biological substances; Z68.22 Body mass index [BMI] 22.0-22.9, adult

== ENCOUNTER 2020-11-21 15:07 | Inpatient (IN) | payer OTHER ==
[~2020-11-21] VITALS: Ht 175.2 cm; Wt 71.2 kg
[~2020-11-21 15:07] MED LIST changes: +HYDROXYZINE HCL25 MG PO; +NATURE'S BLEND F1 MG PO
[2020-11-21 15:14] VITALS: BP 116/68
[2020-11-21 15:42] LABS: BASO % 0.6 % (0.0-1.0); EOS # 0.2 10*3/uL (0.0-0.4); EOS % 3.4 % (1.0-4.0); HEMATOCRIT 33.8 % (42.0-52.0); LYMPH # 2.1 10*3/uL (1.3-4.4); LYMPH % 29.6 % (27.0-41.0); MEAN CELL VOLUME 98.8 fl (80.0-94.0); MEAN CORPUSCULAR HGB 33.9 pg (27.0-31.0); MEAN CORPUSCULAR HGB CONC 34.3 g/dl (33.0-37.0); MEAN PLATELET VOLUME 9.1 fl (9.6-12.3); MONO % 13.5 % (3.0-9.0); NEUT # 3.7 10*3/uL (2.3-7.9); NEUT % 52.6 % (47.0-73.0); PLATELET COUNT AUTOMATED 134 10*3/uL (130-400); RED BLOOD COUNT 3.42 10*6/uL (4.50-5.90); RED CELL DISTRI WIDTH 13.5 % (0-14.5); WHITE BLOOD COUNT 7.1 10*3/uL (4.8-10.8)
[2020-11-21 15:54] VITALS: BP 121/88
[2020-11-21 16:00] LABS: ALBUMIN 2.5 gm/dl (3.1-4.5); ALKALINE PHOSPHATASE 78 U/L (45-117); BUN 6 mg/dl (7-24); CHLORIDE 116 mmol/L (98-107); CREATININE 1.08 mg/dL (0.70-1.30); POTASSIUM 2.6 mmol/L (3.5-5.1); SGOT/AST 16 IU/L (3-35); SGPT/ALT 16 U/L (12-78); SODIUM 149 mmol/L (136-145); TOTAL PROTEIN 5.9 gm/dL (6.4-8.2)
[2020-11-21 16:01] LABS: TROPONIN I < 0.015 ng/ml (<0.045)
[2020-11-21 18:03] VITALS: BP 128/90
[2020-11-21 20:00] VITALS: BP 109/68
[2020-11-21 22:26] LABS: BUN 5 mg/dl (7-24); CHLORIDE 113 mmol/L (98-107); SODIUM 147 mmol/L (136-145)
[2020-11-22] VITALS: BP 109/68; BP 134/71
[2020-11-22 05:48] LABS: ALBUMIN 2.5 gm/dl (3.1-4.5); ALKALINE PHOSPHATASE 67 U/L (45-117); BUN 6 mg/dl (7-24); CHLORIDE 112 mmol/L (98-107); CREATININE 1.01 mg/dL (0.70-1.30); POTASSIUM 3.5 mmol/L (3.5-5.1); SGOT/AST 19 IU/L (3-35); SGPT/ALT 15 U/L (12-78); SODIUM 141 mmol/L (136-145); TOTAL PROTEIN 5.3 gm/dL (6.4-8.2)
[2020-11-22 06:08] LABS: BASO # 0.1 10*3/uL (0.0-0.1); BASO % 0.7 % (0.0-1.0); EOS # 0.2 10*3/uL (0.0-0.4); EOS % 2.6 % (1.0-4.0); HEMATOCRIT 30.4 % (42.0-52.0); LYMPH # 1.5 10*3/uL (1.3-4.4); LYMPH % 22.2 % (27.0-41.0); MEAN CORPUSCULAR HGB 33.9 pg (27.0-31.0); MEAN CORPUSCULAR HGB CONC 33.9 g/dl (33.0-37.0); MEAN PLATELET VOLUME 9.3 fl (9.6-12.3); MONO # 0.9 10*3/uL (0.1-1.0); MONO % 12.9 % (3.0-9.0); NEUT # 4.2 10*3/uL (2.3-7.9); NEUT % 61.2 % (47.0-73.0); PLATELET COUNT AUTOMATED 120 10*3/uL (130-400); RED BLOOD COUNT 3.04 10*6/uL (4.50-5.90); RED CELL DISTRI WIDTH 13.3 % (0-14.5); WHITE BLOOD COUNT 6.9 10*3/uL (4.8-10.8)
[2020-11-22 07:20] LABS: VITAMIN D, 25-HYDROXY 16.5 ng/mL (30-100)
[2020-11-22 08:00] VITALS: BP 134/81
== END 2020-11-22 09:08 | disposition left against medical advice (07) | DRG 894 ==
LOC: ED 15:07 → 4E 17:47 → EDHOLD 17:47 → 4E 18:29
PROVIDERS: Emergency Medicine; Family Medicine; ADMIT Emergency Medicine; ATTEND Emergency Medicine
DX: F10.239 Alcohol dependence with withdrawal, unspecified (principal); E87.0 Hyperosmolality and hypernatremia; E87.6 Hypokalemia; F17.210 Nicotine dependence, cigarettes, uncomplicated; K21.9 Gastro-esophageal reflux disease without esophagitis; F32.9 Major depressive disorder, single episode, unspecified; M48.061 Spinal stenosis, lumbar region without neurogenic claudication; M19.90 Unspecified osteoarthritis, unspecified site; F41.9 Anxiety disorder, unspecified; J44.9 Chronic obstructive pulmonary disease, unspecified; K72.90 Hepatic failure, unspecified without coma; Z88.8 Allergy status to other drugs, medicaments and biological substances; Z82.49 Family history of ischemic heart disease and other diseases of the circulatory system

== ENCOUNTER 2020-11-24 10:45 | Inpatient (IN) | payer OTHER ==
[~2020-11-24] VITALS: Ht 175.2 cm; Wt 68.5 kg
[2020-11-24 10:48] VITALS: BP 123/78
[2020-11-24 11:19] LABS: BASO # 0.1 10*3/uL (0.0-0.1); EOS # 0.2 10*3/uL (0.0-0.4); EOS % 2.4 % (1.0-4.0); HEMATOCRIT 40.8 % (42.0-52.0); LYMPH # 2.3 10*3/uL (1.3-4.4); LYMPH % 26.9 % (27.0-41.0); MEAN CELL VOLUME 97.4 fl (80.0-94.0); MEAN CORPUSCULAR HGB 33.7 pg (27.0-31.0); MEAN CORPUSCULAR HGB CONC 34.6 g/dl (33.0-37.0); MEAN PLATELET VOLUME 8.6 fl (9.6-12.3); MONO # 0.6 10*3/uL (0.1-1.0); MONO % 6.7 % (3.0-9.0); NEUT # 5.4 10*3/uL (2.3-7.9); NEUT % 62.7 % (47.0-73.0); PLATELET COUNT AUTOMATED 206 10*3/uL (130-400); RED BLOOD COUNT 4.19 10*6/uL (4.50-5.90); RED CELL DISTRI WIDTH 13.1 % (0-14.5); WHITE BLOOD COUNT 8.7 10*3/uL (4.8-10.8)
[2020-11-24 11:30] LABS: ACT PARTIAL THROMBO TIME 25.9 SECONDS (20.0-32.1)
[2020-11-24 11:35] LABS: ALBUMIN 3.1 gm/dl (3.1-4.5); ALKALINE PHOSPHATASE 102 U/L (45-117); BUN 7 mg/dl (7-24); CHLORIDE 116 mmol/L (98-107); CREATININE 1.27 mg/dL (0.70-1.30); LIPASE 249 U/L (73-393); POTASSIUM 3.1 mmol/L (3.5-5.1); SGOT/AST 27 IU/L (3-35); SGPT/ALT 20 U/L (12-78); SODIUM 150 mmol/L (136-145)
[2020-11-24 11:38] LABS: TROPONIN I < 0.015 ng/ml (<0.045)
[2020-11-24 14:12] VITALS: BP 117/70
[2020-11-24 17:15] VITALS: BP 116/77
== END 2020-11-24 22:49 | disposition home or self-care (01) | DRG 192 ==
LOC: ED 10:45 → EDHOLD 12:40 → 4E 16:53 → EDHOLD 16:53 → 4E 16:53 → EDHOLD 22:49
PROVIDERS: Emergency Medicine; ADMIT Student in an Organized Health Care Education/Training Program; ATTEND Student in an Organized Health Care Education/Training Program
DX: J44.1 Chronic obstructive pulmonary disease with (acute) exacerbation (principal); F17.210 Nicotine dependence, cigarettes, uncomplicated; F10.129 Alcohol abuse with intoxication, unspecified; D75.89 Other specified diseases of blood and blood-forming organs; E87.8 Other disorders of electrolyte and fluid balance, not elsewhere classified; Z82.49 Family history of ischemic heart disease and other diseases of the circulatory system

== ENCOUNTER 2020-12-05 13:01 | Inpatient (IN) | payer OTHER ==
[~2020-12-05] VITALS: Ht 175.3 cm; Wt 72.8 kg
[2020-12-05 13:08] VITALS: BP 134/87
[2020-12-05 13:36] LABS: BASO % 0.6 % (0.0-1.0); EOS # 0.1 10*3/uL (0.0-0.4); EOS % 2.1 % (1.0-4.0); HEMATOCRIT 38.4 % (42.0-52.0); LYMPH % 31.6 % (27.0-41.0); MEAN CELL VOLUME 94.3 fl (80.0-94.0); MEAN CORPUSCULAR HGB 33.7 pg (27.0-31.0); MEAN CORPUSCULAR HGB CONC 35.7 g/dl (33.0-37.0); MONO # 0.5 10*3/uL (0.1-1.0); MONO % 7.3 % (3.0-9.0); NEUT # 3.6 10*3/uL (2.3-7.9); NEUT % 58.1 % (47.0-73.0); PLATELET COUNT AUTOMATED 116 10*3/uL (130-400); RED BLOOD COUNT 4.07 10*6/uL (4.50-5.90); RED CELL DISTRI WIDTH 13.6 % (0-14.5); WHITE BLOOD COUNT 6.3 10*3/uL (4.8-10.8)
[2020-12-05 13:52] LABS: ALKALINE PHOSPHATASE 102 U/L (45-117); BUN 5 mg/dl (7-24); CHLORIDE 101 mmol/L (98-107); CREATININE 0.88 mg/dL (0.70-1.30); POTASSIUM 3.1 mmol/L (3.5-5.1); SGOT/AST 49 IU/L (3-35); SGPT/ALT 21 U/L (12-78); SODIUM 145 mmol/L (136-145); TOTAL PROTEIN 6.7 gm/dL (6.4-8.2)
[2020-12-05 13:56] LABS: TROPONIN I < 0.015 ng/ml (<0.045)
[2020-12-05 14:49] LABS: URINE AMPHETAMINES < 1000 (1000ng/ml); URINE BARBITURATES < 200 (200ng/ml); URINE BENZODIAZEPINES < 200 (200ng/ml); URINE CANNABINOIDS (THC) < 50 (50ng/ml); URINE COCAINE < 300 (300ng/ml); URINE METHADONE < 300 (300ng/ml); URINE OPIATES < 300 (300ng/ml)
[2020-12-05 14:54] LABS: URINE PHENCYCLIDINE < 25 (25ng/ml)
[2020-12-05 15:43] VITALS: BP 120/71
[2020-12-05 20:13] VITALS: BP 129/78
[2020-12-05 21:13] VITALS: BP 161/94
[2020-12-06 01:16] VITALS: BP 141/89
[2020-12-06 01:23] VITALS: BP 148/90
[2020-12-06 05:56] LABS: ALBUMIN 2.7 gm/dl (3.1-4.5); BUN 7 mg/dl (7-24); CHLORIDE 101 mmol/L (98-107); CREATININE 0.79 mg/dL (0.70-1.30); POTASSIUM 2.5 mmol/L (3.5-5.1); SGOT/AST 29 IU/L (3-35); SGPT/ALT 15 U/L (12-78); SODIUM 141 mmol/L (136-145); TOTAL PROTEIN 5.5 gm/dL (6.4-8.2)
[2020-12-06 05:57] LABS: ALKALINE PHOSPHATASE 91 U/L (45-117)
[2020-12-06 06:10] LABS: BASO % 0.4 % (0.0-1.0); EOS # 0.1 10*3/uL (0.0-0.4); EOS % 1.4 % (1.0-4.0); HEMATOCRIT 32.8 % (42.0-52.0); LYMPH # 1.6 10*3/uL (1.3-4.4); MEAN CELL VOLUME 94.5 fl (80.0-94.0); MEAN CORPUSCULAR HGB 33.4 pg (27.0-31.0); MEAN CORPUSCULAR HGB CONC 35.4 g/dl (33.0-37.0); MONO # 0.4 10*3/uL (0.1-1.0); MONO % 5.9 % (3.0-9.0); NEUT # 5.1 10*3/uL (2.3-7.9); PLATELET COUNT AUTOMATED 87 10*3/uL (130-400); RED BLOOD COUNT 3.47 10*6/uL (4.50-5.90); RED CELL DISTRI WIDTH 13.3 % (0-14.5); WHITE BLOOD COUNT 7.2 10*3/uL (4.8-10.8)
[2020-12-06 08:00] VITALS: BP 135/81
[2020-12-06 12:00] VITALS: BP 150/88
[2020-12-06 16:00] VITALS: BP 137/75
[2020-12-06 20:00] VITALS: BP 132/59
== END 2020-12-07 00:05 | disposition left against medical advice (07) | DRG 190 ==
LOC: ED 13:01 → EDHOLD 12-06 00:01 → 4E 12-06 00:40
PROVIDERS: Internal Medicine; Physician Assistant; ADMIT Emergency Medicine; ATTEND Emergency Medicine
DX: J44.0 Chronic obstructive pulmonary disease with (acute) lower respiratory infection (principal); J18.9 Pneumonia, unspecified organism; F10.239 Alcohol dependence with withdrawal, unspecified; E44.0 Moderate protein-calorie malnutrition; J44.1 Chronic obstructive pulmonary disease with (acute) exacerbation; F17.210 Nicotine dependence, cigarettes, uncomplicated; Y90.9 Presence of alcohol in blood, level not specified; F41.9 Anxiety disorder, unspecified; M19.90 Unspecified osteoarthritis, unspecified site; K21.9 Gastro-esophageal reflux disease without esophagitis; F32.9 Major depressive disorder, single episode, unspecified; R00.0 Tachycardia, unspecified; D53.9 Nutritional anemia, unspecified; E87.6 Hypokalemia; D69.6 Thrombocytopenia, unspecified; F10.229 Alcohol dependence with intoxication, unspecified; E66.3 Overweight; R74.01 Elevation of levels of liver transaminase levels; Z82.49 Family history of ischemic heart disease and other diseases of the circulatory system; Z80.8 Family history of malignant neoplasm of other organs or systems; Z53.29 Procedure and treatment not carried out because of patient's decision for other reasons; Z68.23 Body mass index [BMI] 23.0-23.9, adult

== ENCOUNTER 2020-12-12 11:26 | Emergency (ER) | payer OTHER ==
[~2020-12-12] VITALS: Ht 175.2 cm; Wt 69.9 kg
[2020-12-12 11:47] LABS: BASO % 0.7 % (0.0-1.0); EOS # 0.1 10*3/uL (0.0-0.4); EOS % 1.6 % (1.0-4.0); HEMATOCRIT 38.9 % (42.0-52.0); LYMPH # 1.6 10*3/uL (1.3-4.4); LYMPH % 36.6 % (27.0-41.0); MEAN CELL VOLUME 92.2 fl (80.0-94.0); MEAN CORPUSCULAR HGB 33.4 pg (27.0-31.0); MEAN CORPUSCULAR HGB CONC 36.2 g/dl (33.0-37.0); MEAN PLATELET VOLUME 8.4 fl (9.6-12.3); MONO # 0.5 10*3/uL (0.1-1.0); MONO % 10.2 % (3.0-9.0); NEUT # 2.3 10*3/uL (2.3-7.9); NEUT % 50.7 % (47.0-73.0); PLATELET COUNT AUTOMATED 103 10*3/uL (130-400); RED BLOOD COUNT 4.22 10*6/uL (4.50-5.90); RED CELL DISTRI WIDTH 13.3 % (0-14.5); WHITE BLOOD COUNT 4.4 10*3/uL (4.8-10.8)
[2020-12-12 11:56] LABS: ACT PARTIAL THROMBO TIME 27.1 SECONDS (20.0-32.1); INTERNATIONAL NORM RATIO 1.1 (2.0-3.5)
[2020-12-12 12:03] LABS: ALBUMIN 3.2 gm/dl (3.1-4.5); ALKALINE PHOSPHATASE 106 U/L (45-117); BUN 5 mg/dl (7-24); CHLORIDE 105 mmol/L (98-107); CPK 105 U/L (39-308); CREATININE 0.78 mg/dL (0.70-1.30); LIPASE 114 U/L (73-393); POTASSIUM 2.5 mmol/L (3.5-5.1); SGOT/AST 33 IU/L (3-35); SGPT/ALT 22 U/L (12-78); SODIUM 145 mmol/L (136-145); TOTAL PROTEIN 6.7 gm/dL (6.4-8.2)
[2020-12-12 12:04] LABS: TROPONIN I < 0.015 ng/ml (<0.045)
[2020-12-12 16:26] LABS: BILIRUBIN Negative (Negative); BLOOD Negative (Negative); CLARITY Clear (Clear); COLOR Yellow (Yellow); GLUCOSE Negative (Negative); KETONE Negative (Negative); LEUKO ESTERASE Negative (Negative); NITRITE Negative (Negative); SPECIFIC GRAVITY 1.015 (1.001-1.030)
[2020-12-12 16:35] LABS: URINE AMPHETAMINES < 1000 (1000ng/ml); URINE BARBITURATES > 200 (200ng/ml); URINE BENZODIAZEPINES < 200 (200ng/ml); URINE CANNABINOIDS (THC) < 50 (50ng/ml); URINE COCAINE < 300 (300ng/ml); URINE METHADONE < 300 (300ng/ml); URINE OPIATES < 300 (300ng/ml)
[2020-12-12 16:54] LABS: URINE PHENCYCLIDINE < 25 (25ng/ml)
[2020-12-12 16:59] LABS: BACTERIA TRACE; EPITHELIAL CELLS 0-2; HYALINE CAST 0-2; MUCOUS TRACE; RBC 0-2 rbc/hpf (0-2)
== END 2020-12-13 10:41 | disposition home or self-care (01) ==
LOC: ED 11:26
PROVIDERS: Emergency Medicine
DX: F10.129 Alcohol abuse with intoxication, unspecified (principal); Y90.9 Presence of alcohol in blood, level not specified

== ENCOUNTER 2020-12-16 19:39 | Inpatient (IN) | payer OTHER ==
[~2020-12-16] VITALS: Ht 175.2 cm; Wt 71.9 kg
[2020-12-16 19:48] VITALS: BP 122/93
[2020-12-16 20:09] LABS: BASO % 0.5 % (0.0-1.0); EOS % 0.2 % (1.0-4.0); HEMATOCRIT 33.4 % (42.0-52.0); LYMPH # 1.7 10*3/uL (1.3-4.4); LYMPH % 27.8 % (27.0-41.0); MEAN CELL VOLUME 91.3 fl (80.0-94.0); MEAN CORPUSCULAR HGB 33.9 pg (27.0-31.0); MEAN PLATELET VOLUME 8.1 fl (9.6-12.3); MONO # 0.4 10*3/uL (0.1-1.0); MONO % 5.8 % (3.0-9.0); NEUT % 65.5 % (47.0-73.0); PLATELET COUNT AUTOMATED 92 10*3/uL (130-400); RED BLOOD COUNT 3.66 10*6/uL (4.50-5.90); RED CELL DISTRI WIDTH 13.5 % (0-14.5); WHITE BLOOD COUNT 6.2 10*3/uL (4.8-10.8)
[2020-12-16 20:13] LABS: MEAN CORPUSCULAR HGB CONC 37.1 g/dl (33.0-37.0)
[2020-12-16 20:26] LABS: ALBUMIN 3.2 gm/dl (3.1-4.5); ALKALINE PHOSPHATASE 98 U/L (45-117); BUN 6 mg/dl (7-24); CHLORIDE 106 mmol/L (98-107); CREATININE 0.69 mg/dL (0.70-1.30); SGOT/AST 42 IU/L (3-35); SGPT/ALT 23 U/L (12-78); SODIUM 146 mmol/L (136-145); TOTAL PROTEIN 6.5 gm/dL (6.4-8.2)
[2020-12-16 20:35] LABS: POTASSIUM 2.3 mmol/L (3.5-5.1)
[2020-12-16 21:34] VITALS: BP 132/80
[2020-12-16 23:00] VITALS: BP 136/78
[2020-12-17] VITALS (8 sets, daily range): BP systolic 124–148; BP diastolic 60–86
[2020-12-17 10:20] LABS: ALKALINE PHOSPHATASE 90 U/L (45-117); BUN 5 mg/dl (7-24); CHLORIDE 104 mmol/L (98-107); CREATININE 0.77 mg/dL (0.70-1.30); SGOT/AST 40 IU/L (3-35); SGPT/ALT 22 U/L (12-78); SODIUM 142 mmol/L (136-145); TOTAL PROTEIN 5.8 gm/dL (6.4-8.2)
[2020-12-17 10:21] LABS: POTASSIUM 2.4 mmol/L (3.5-5.1)
[2020-12-17 11:42] LABS: BILIRUBIN Negative (Negative); BLOOD Negative (Negative); CLARITY Clear (Clear); COLOR Yellow (Yellow); GLUCOSE Negative (Negative); KETONE Negative (Negative); LEUKO ESTERASE Negative (Negative); NITRITE Negative (Negative); PH 7.5 (4.5-8.0)
[2020-12-17 11:49] LABS: URINE AMPHETAMINES < 1000 (1000ng/ml); URINE BARBITURATES > 200 (200ng/ml); URINE BENZODIAZEPINES < 200 (200ng/ml); URINE CANNABINOIDS (THC) < 50 (50ng/ml); URINE COCAINE < 300 (300ng/ml); URINE METHADONE < 300 (300ng/ml); URINE OPIATES < 300 (300ng/ml); URINE PHENCYCLIDINE < 25 (25ng/ml)
[2020-12-17 12:03] LABS: BACTERIA TRACE; EPITHELIAL CELLS 0-2; RBC 0-2 rbc/hpf (0-2); WBC 0-2 wbc/hpf (0-5)
[2020-12-18] VITALS: BP 139/81
[2020-12-18 05:11] LABS: ALBUMIN 2.8 gm/dl (3.1-4.5); ALKALINE PHOSPHATASE 86 U/L (45-117); BUN 3 mg/dl (7-24); CHLORIDE 102 mmol/L (98-107); CREATININE 0.62 mg/dL (0.70-1.30); SGOT/AST 26 IU/L (3-35); SGPT/ALT 18 U/L (12-78); SODIUM 140 mmol/L (136-145); TOTAL PROTEIN 5.6 gm/dL (6.4-8.2)
[2020-12-18 05:15] LABS: POTASSIUM 2.4 mmol/L (3.5-5.1)
[2020-12-18 07:45] LABS: BASO % 0.4 % (0.0-1.0); EOS # 0.1 10*3/uL (0.0-0.4); EOS % 1.5 % (1.0-4.0); HEMATOCRIT 31.4 % (42.0-52.0); LYMPH # 1.8 10*3/uL (1.3-4.4); LYMPH % 32.1 % (27.0-41.0); MEAN CELL VOLUME 93.5 fl (80.0-94.0); MEAN CORPUSCULAR HGB 33.6 pg (27.0-31.0); MEAN PLATELET VOLUME 9.6 fl (9.6-12.3); MONO # 0.4 10*3/uL (0.1-1.0); NEUT # 3.2 10*3/uL (2.3-7.9); NEUT % 58.6 % (47.0-73.0); PLATELET COUNT AUTOMATED 85 10*3/uL (130-400); RED BLOOD COUNT 3.36 10*6/uL (4.50-5.90); RED CELL DISTRI WIDTH 13.5 % (0-14.5); WHITE BLOOD COUNT 5.5 10*3/uL (4.8-10.8)
[2020-12-18 08:00] VITALS: BP 124/66
[2020-12-18] MEDS ORDERED: PROVENTIL HFA6.7 GM INH (08:30)
[2020-12-18 12:00] VITALS: BP 128/74
[2020-12-18 13:21] LABS: BUN 4 mg/dl (7-24); CHLORIDE 102 mmol/L (98-107); POTASSIUM 2.5 mmol/L (3.5-5.1); SODIUM 139 mmol/L (136-145)
[2020-12-18 16:49] VITALS: BP 113/75
[2020-12-18 20:00] VITALS: BP 121/76
[2020-12-19] VITALS: BP 130/79
[2020-12-19 07:03] LABS: BUN 7 mg/dl (7-24); CHLORIDE 103 mmol/L (98-107); CREATININE 0.65 mg/dL (0.70-1.30); SODIUM 142 mmol/L (136-145)
[2020-12-19 07:10] LABS: POTASSIUM 2.2 mmol/L (3.5-5.1)
[2020-12-19 08:00] VITALS: BP 119/67
[2020-12-19 12:00] VITALS: BP 120/58
[2020-12-19 16:00] VITALS: BP 122/64
[2020-12-19 20:00] VITALS: BP 142/78
[2020-12-19 20:02] LABS: BUN 8 mg/dl (7-24); CHLORIDE 106 mmol/L (98-107); POTASSIUM 3.1 mmol/L (3.5-5.1); SODIUM 143 mmol/L (136-145)
[2020-12-20] VITALS: BP 145/88
[2020-12-20 05:58] LABS: ALBUMIN 2.6 gm/dl (3.1-4.5); BASO % 0.3 % (0.0-1.0); BUN 7 mg/dl (7-24); CHLORIDE 107 mmol/L (98-107); EOS # 0.2 10*3/uL (0.0-0.4); EOS % 2.6 % (1.0-4.0); HEMATOCRIT 29.9 % (42.0-52.0); LYMPH # 1.8 10*3/uL (1.3-4.4); LYMPH % 27.8 % (27.0-41.0); MEAN CELL VOLUME 97.4 fl (80.0-94.0); MEAN CORPUSCULAR HGB 33.9 pg (27.0-31.0); MEAN CORPUSCULAR HGB CONC 34.8 g/dl (33.0-37.0); MEAN PLATELET VOLUME 10.1 fl (9.6-12.3); MONO # 0.5 10*3/uL (0.1-1.0); MONO % 7.4 % (3.0-9.0); NEUT # 4.1 10*3/uL (2.3-7.9); NEUT % 61.3 % (47.0-73.0); PLATELET COUNT AUTOMATED 100 10*3/uL (130-400); RED BLOOD COUNT 3.07 10*6/uL (4.50-5.90); RED CELL DISTRI WIDTH 14.1 % (0-14.5); SODIUM 141 mmol/L (136-145); WHITE BLOOD COUNT 6.6 10*3/uL (4.8-10.8)
[2020-12-20 06:01] LABS: ALKALINE PHOSPHATASE 130 U/L (45-117); CREATININE 0.63 mg/dL (0.70-1.30); SGOT/AST 12 IU/L (3-35); SGPT/ALT 17 U/L (12-78); TOTAL PROTEIN 5.4 gm/dL (6.4-8.2)
[2020-12-20 08:00] VITALS: BP 123/67
[2020-12-20 12:00] VITALS: BP 120/58
== END 2020-12-20 13:30 | disposition home or self-care (01) | DRG 897 ==
LOC: ED 19:39 → 4E 12-17 11:07 → EDHOLD 12-17 11:07 → 4E 12-17 11:51
PROVIDERS: Emergency Medicine; Hospitalist; Internal Medicine; Registered Nurse; ADMIT Internal Medicine; ATTEND Internal Medicine
DX: F10.230 Alcohol dependence with withdrawal, uncomplicated (principal); E44.0 Moderate protein-calorie malnutrition; J44.9 Chronic obstructive pulmonary disease, unspecified; F32.9 Major depressive disorder, single episode, unspecified; E87.6 Hypokalemia; K21.9 Gastro-esophageal reflux disease without esophagitis; R74.01 Elevation of levels of liver transaminase levels; F10.220 Alcohol dependence with intoxication, uncomplicated; E80.6 Other disorders of bilirubin metabolism; D69.6 Thrombocytopenia, unspecified; F41.9 Anxiety disorder, unspecified; Z68.23 Body mass index [BMI] 23.0-23.9, adult; Z82.49 Family history of ischemic heart disease and other diseases of the circulatory system; Z88.8 Allergy status to other drugs, medicaments and biological substances

== ENCOUNTER 2020-12-31 00:15 | Emergency (ER) | payer OTHER ==
[~2020-12-31] VITALS: Ht 177.8 cm; Wt 77.1 kg
[~2020-12-31 00:15] MED LIST changes: +PROVENTIL HFA6.7 GM INH
[2020-12-31 00:48] LABS: BASO % 0.4 % (0.0-1.0); HEMATOCRIT 39.8 % (42.0-52.0); LYMPH # 1.4 10*3/uL (1.3-4.4); LYMPH % 18.3 % (27.0-41.0); MEAN CELL VOLUME 93.6 fl (80.0-94.0); MEAN CORPUSCULAR HGB 33.2 pg (27.0-31.0); MEAN CORPUSCULAR HGB CONC 35.4 g/dl (33.0-37.0); MEAN PLATELET VOLUME 8.3 fl (9.6-12.3); MONO # 0.6 10*3/uL (0.1-1.0); MONO % 7.7 % (3.0-9.0); NEUT # 5.5 10*3/uL (2.3-7.9); NEUT % 73.3 % (47.0-73.0); PLATELET COUNT AUTOMATED 153 10*3/uL (130-400); RED BLOOD COUNT 4.25 10*6/uL (4.50-5.90); RED CELL DISTRI WIDTH 13.4 % (0-14.5); WHITE BLOOD COUNT 7.5 10*3/uL (4.8-10.8)
[2020-12-31 01:09] LABS: ALBUMIN 3.9 gm/dl (3.1-4.5); ALKALINE PHOSPHATASE 101 U/L (45-117); BUN 13 mg/dl (7-24); CHLORIDE 102 mmol/L (98-107); CREATININE 1.02 mg/dL (0.70-1.30); POTASSIUM 3.1 mmol/L (3.5-5.1); SGOT/AST 86 IU/L (3-35); SGPT/ALT 30 U/L (12-78); SODIUM 142 mmol/L (136-145); TOTAL PROTEIN 7.2 gm/dL (6.4-8.2)
[2020-12-31 01:10] LABS: TROPONIN I < 0.015 ng/ml (<0.045)
[2020-12-31 01:44] LABS: BILIRUBIN Negative (Negative); BLOOD 2+ (Negative); CLARITY Clear (Clear); COLOR Dark Yellow (Yellow); GLUCOSE Negative (Negative); KETONE 2+ (Negative); LEUKO ESTERASE Trace (Negative); NITRITE Negative (Negative); SPECIFIC GRAVITY 1.025 (1.001-1.030)
[2020-12-31 01:54] LABS: URINE AMPHETAMINES < 1000 (1000ng/ml); URINE BARBITURATES < 200 (200ng/ml); URINE BENZODIAZEPINES < 200 (200ng/ml); URINE CANNABINOIDS (THC) < 50 (50ng/ml); URINE COCAINE < 300 (300ng/ml); URINE METHADONE < 300 (300ng/ml); URINE OPIATES < 300 (300ng/ml)
[2020-12-31 02:02] LABS: URINE PHENCYCLIDINE < 25 (25ng/ml)
[2020-12-31 02:05] LABS: BACTERIA TRACE; MUCOUS 1+
== END 2020-12-31 17:56 | disposition home or self-care (01) ==
LOC: ED 00:15
PROVIDERS: Emergency Medicine
DX: F10.129 Alcohol abuse with intoxication, unspecified (principal); J44.1 Chronic obstructive pulmonary disease with (acute) exacerbation; Z79.899 Other long term (current) drug therapy; Y90.8 Blood alcohol level of 240 mg/100 ml or more

== ENCOUNTER 2021-01-01 00:10 | Emergency (ER) | payer OTHER ==
[~2021-01-01] VITALS: Ht 175.2 cm; Wt 74.8 kg
[2021-01-01 00:36] LABS: HEMATOCRIT 37.8 % (42.0-52.0); MEAN CELL VOLUME 95.2 fl (80.0-94.0); MEAN CORPUSCULAR HGB 33.5 pg (27.0-31.0); MEAN CORPUSCULAR HGB CONC 35.2 g/dl (33.0-37.0); MEAN PLATELET VOLUME 8.6 fl (9.6-12.3); PLATELET COUNT AUTOMATED 131 10*3/uL (130-400); RED BLOOD COUNT 3.97 10*6/uL (4.50-5.90); RED CELL DISTRI WIDTH 13.2 % (0-14.5); WHITE BLOOD COUNT 12.2 10*3/uL (4.8-10.8)
[2021-01-01 00:50] LABS: ACT PARTIAL THROMBO TIME 23.9 SECONDS (20.0-32.1); INTERNATIONAL NORM RATIO 1.1 (2.0-3.5)
[2021-01-01 01:15] LABS: TOTAL CELLS COUNTED 100 #CELLS
[2021-01-01 01:16] LABS: ALBUMIN 3.8 gm/dl (3.1-4.5); ALKALINE PHOSPHATASE 99 U/L (45-117); BUN 13 mg/dl (7-24); CHLORIDE 105 mmol/L (98-107); CREATININE 0.85 mg/dL (0.70-1.30); PLATELET SUFFICIENCY NORMAL (NORMAL); POTASSIUM 2.9 mmol/L (3.5-5.1); SGOT/AST 95 IU/L (3-35); SGPT/ALT 35 U/L (12-78); SODIUM 143 mmol/L (136-145); TOTAL PROTEIN 6.9 gm/dL (6.4-8.2)
[2021-01-01 01:19] LABS: ACETAMINOPHEN (TYLENOL) < 5.0 ug/ml (10-30)
[2021-01-01 01:54] LABS: BILIRUBIN Negative (Negative); BLOOD Negative (Negative); CLARITY Clear (Clear); COLOR Yellow (Yellow); GLUCOSE Negative (Negative); KETONE Negative (Negative); LEUKO ESTERASE Negative (Negative); NITRITE Negative (Negative); PH 6.5 (4.5-8.0); SPECIFIC GRAVITY 1.015 (1.001-1.030)
[2021-01-01 02:02] LABS: URINE AMPHETAMINES < 1000 (1000ng/ml); URINE BARBITURATES < 200 (200ng/ml); URINE BENZODIAZEPINES < 200 (200ng/ml); URINE CANNABINOIDS (THC) < 50 (50ng/ml); URINE COCAINE < 300 (300ng/ml); URINE METHADONE < 300 (300ng/ml); URINE OPIATES < 300 (300ng/ml)
[2021-01-01 02:06] LABS: URINE PHENCYCLIDINE < 25 (25ng/ml)
[2021-01-01 02:28] LABS: RBC 0-2 rbc/hpf (0-2)
[2021-01-02] MEDS ORDERED: PREDNISONE50 MG PO (15:48)
[2021-01-02] MEDS ORDERED: XOPENEX HFA15 GM INH (15:48)
== END 2021-01-01 02:25 | disposition short-term general hospital (02) ==
LOC: ED 00:10
PROVIDERS: Emergency Medicine
DX: S00.91XA Abrasion of unspecified part of head, initial encounter (principal); S80.812A Abrasion, left lower leg, initial encounter; S80.811A Abrasion, right lower leg, initial encounter; R10.9 Unspecified abdominal pain; R07.9 Chest pain, unspecified; Z88.8 Allergy status to other drugs, medicaments and biological substances; Z79.899 Other long term (current) drug therapy; V89.2XXA Person injured in unspecified motor-vehicle accident, traffic, initial encounter; Y93.89 Activity, other specified; Y92.89 Other specified places as the place of occurrence of the external cause; Y99.8 Other external cause status

== ENCOUNTER 2021-01-02 10:38 | Emergency (ER) | payer OTHER ==
[~2021-01-02] VITALS: Ht 175.2 cm; Wt 71.7 kg
[2021-01-02] MEDS ORDERED: XOPENEX HFA15 GM INH (15:48)
[2021-01-02] MEDS ORDERED: PREDNISONE50 MG PO (15:48)
== END 2021-01-02 16:02 | disposition home or self-care (01) ==
LOC: ED 10:38
DX: F10.129 Alcohol abuse with intoxication, unspecified (principal); Z88.8 Allergy status to other drugs, medicaments and biological substances; Z79.899 Other long term (current) drug therapy; Y90.8 Blood alcohol level of 240 mg/100 ml or more

== ENCOUNTER 2021-01-04 12:12 | Emergency (ER) | payer OTHER ==
[~2021-01-04] VITALS: Ht 175.2 cm; Wt 71.7 kg
[~2021-01-04 12:12] MED LIST changes: +PREDNISONE50 MG PO; +XOPENEX HFA15 GM INH
== END 2021-01-05 02:02 | disposition home or self-care (01) ==
LOC: ED 12:12
DX: F10.920 Alcohol use, unspecified with intoxication, uncomplicated (principal); M54.9 Dorsalgia, unspecified; M54.2 Cervicalgia; M25.512 Pain in left shoulder; F17.200 Nicotine dependence, unspecified, uncomplicated; Z91.048 Other nonmedicinal substance allergy status; Z79.899 Other long term (current) drug therapy; Y90.8 Blood alcohol level of 240 mg/100 ml or more

== ENCOUNTER 2021-01-07 12:45 | Emergency (ER) | payer OTHER ==
[~2021-01-07] VITALS: Ht 175.2 cm; Wt 73.9 kg
[2021-01-07 13:20] LABS: BASO % 0.6 % (0.0-1.0); EOS # 0.1 10*3/uL (0.0-0.4); EOS % 1.7 % (1.0-4.0); HEMATOCRIT 32.4 % (42.0-52.0); LYMPH # 1.3 10*3/uL (1.3-4.4); LYMPH % 25.8 % (27.0-41.0); MEAN CELL VOLUME 95.9 fl (80.0-94.0); MEAN CORPUSCULAR HGB 33.4 pg (27.0-31.0); MEAN CORPUSCULAR HGB CONC 34.9 g/dl (33.0-37.0); MEAN PLATELET VOLUME 8.6 fl (9.6-12.3); MONO # 0.6 10*3/uL (0.1-1.0); MONO % 11.8 % (3.0-9.0); NEUT # 3.1 10*3/uL (2.3-7.9); NEUT % 59.5 % (47.0-73.0); PLATELET COUNT AUTOMATED 100 10*3/uL (130-400); RED BLOOD COUNT 3.38 10*6/uL (4.50-5.90); RED CELL DISTRI WIDTH 14.1 % (0-14.5); WHITE BLOOD COUNT 5.2 10*3/uL (4.8-10.8)
[2021-01-07 13:48] LABS: ALBUMIN 2.9 gm/dl (3.1-4.5); ALKALINE PHOSPHATASE 124 U/L (45-117); BUN 17 mg/dl (7-24); CHLORIDE 111 mmol/L (98-107); CREATININE 0.85 mg/dL (0.70-1.30); LIPASE 189 U/L (73-393); POTASSIUM 2.7 mmol/L (3.5-5.1); SGOT/AST 31 IU/L (3-35); SGPT/ALT 24 U/L (12-78); SODIUM 146 mmol/L (136-145); TOTAL PROTEIN 5.9 gm/dL (6.4-8.2)
[2021-01-07 13:53] LABS: TROPONIN I < 0.015 ng/ml (<0.045)
== END 2021-01-08 06:07 | disposition home or self-care (01) ==
LOC: ED 12:45
PROVIDERS: Emergency Medicine
DX: F10.10 Alcohol abuse, uncomplicated (principal); E87.8 Other disorders of electrolyte and fluid balance, not elsewhere classified; D53.9 Nutritional anemia, unspecified; E44.0 Moderate protein-calorie malnutrition; F17.200 Nicotine dependence, unspecified, uncomplicated; Z91.048 Other nonmedicinal substance allergy status; Y90.8 Blood alcohol level of 240 mg/100 ml or more

== ENCOUNTER 2021-01-11 12:05 | Emergency (ER) | payer OTHER ==
[~2021-01-11] VITALS: Wt 71.7 kg
[2021-01-11 12:51] LABS: BASO % 0.7 % (0.0-1.0); EOS # 0.1 10*3/uL (0.0-0.4); EOS % 1.1 % (1.0-4.0); HEMATOCRIT 35.3 % (42.0-52.0); LYMPH # 1.5 10*3/uL (1.3-4.4); LYMPH % 32.2 % (27.0-41.0); MEAN CELL VOLUME 97.2 fl (80.0-94.0); MEAN CORPUSCULAR HGB 33.6 pg (27.0-31.0); MEAN CORPUSCULAR HGB CONC 34.6 g/dl (33.0-37.0); MEAN PLATELET VOLUME 7.9 fl (9.6-12.3); MONO # 0.5 10*3/uL (0.1-1.0); MONO % 9.9 % (3.0-9.0); NEUT # 2.5 10*3/uL (2.3-7.9); NEUT % 55.7 % (47.0-73.0); PLATELET COUNT AUTOMATED 92 10*3/uL (130-400); RED BLOOD COUNT 3.63 10*6/uL (4.50-5.90); RED CELL DISTRI WIDTH 14.6 % (0-14.5); WHITE BLOOD COUNT 4.5 10*3/uL (4.8-10.8)
[2021-01-11 13:10] LABS: ALBUMIN 3.3 gm/dl (3.1-4.5); ALKALINE PHOSPHATASE 89 U/L (45-117); BUN 7 mg/dl (7-24); CHLORIDE 112 mmol/L (98-107); CPK 96 U/L (39-308); CREATININE 0.66 mg/dL (0.70-1.30); POTASSIUM 2.9 mmol/L (3.5-5.1); SGOT/AST 33 IU/L (3-35); SGPT/ALT 21 U/L (12-78); SODIUM 148 mmol/L (136-145); TOTAL PROTEIN 6.2 gm/dL (6.4-8.2)
[2021-01-11 13:13] LABS: TROPONIN I < 0.015 ng/ml (<0.045)
[2021-01-11 18:03] LABS: BUN 9 mg/dl (7-24); CHLORIDE 110 mmol/L (98-107); CREATININE 0.97 mg/dL (0.70-1.30); POTASSIUM 3.1 mmol/L (3.5-5.1); SODIUM 144 mmol/L (136-145)
[2021-01-11 18:15] LABS: BILIRUBIN Negative (Negative); BLOOD Negative (Negative); CLARITY Clear (Clear); COLOR Yellow (Yellow); GLUCOSE 1+ (Negative); KETONE 1+ (Negative); LEUKO ESTERASE Negative (Negative); NITRITE Negative (Negative); PH 5.5 (4.5-8.0); SPECIFIC GRAVITY 1.015 (1.001-1.030)
[2021-01-11 18:23] LABS: BACTERIA TRACE; RBC 0-2 rbc/hpf (0-2); WBC 0-2 wbc/hpf (0-5)
[2021-01-11 18:24] LABS: URINE AMPHETAMINES < 1000 (1000ng/ml); URINE BARBITURATES < 200 (200ng/ml); URINE BENZODIAZEPINES > 200 (200ng/ml); URINE CANNABINOIDS (THC) < 50 (50ng/ml); URINE COCAINE < 300 (300ng/ml); URINE METHADONE < 300 (300ng/ml); URINE OPIATES < 300 (300ng/ml)
[2021-01-11 18:25] LABS: URINE PHENCYCLIDINE < 25 (25ng/ml)
== END 2021-01-12 05:38 | disposition home or self-care (01) ==
LOC: ED 12:05
PROVIDERS: Emergency Medicine
DX: F10.129 Alcohol abuse with intoxication, unspecified (principal); R06.00 Dyspnea, unspecified; R74.02 Elevation of levels of lactic acid dehydrogenase [LDH]; E87.0 Hyperosmolality and hypernatremia; E87.6 Hypokalemia; F41.9 Anxiety disorder, unspecified; J44.9 Chronic obstructive pulmonary disease, unspecified; K21.9 Gastro-esophageal reflux disease without esophagitis

== ENCOUNTER 2021-01-13 16:44 | Emergency (ER) | payer OTHER ==
[~2021-01-13] VITALS: Wt 76.7 kg
[2021-01-13 17:08] LABS: BASO % 0.6 % (0.0-1.0); EOS % 0.8 % (1.0-4.0); HEMATOCRIT 34.7 % (42.0-52.0); LYMPH # 1.2 10*3/uL (1.3-4.4); LYMPH % 25.5 % (27.0-41.0); MEAN CELL VOLUME 98.9 fl (80.0-94.0); MEAN CORPUSCULAR HGB 33.6 pg (27.0-31.0); MEAN PLATELET VOLUME 7.8 fl (9.6-12.3); MONO # 0.6 10*3/uL (0.1-1.0); MONO % 12.6 % (3.0-9.0); NEUT # 2.9 10*3/uL (2.3-7.9); NEUT % 60.1 % (47.0-73.0); PLATELET COUNT AUTOMATED 83 10*3/uL (130-400); RED BLOOD COUNT 3.51 10*6/uL (4.50-5.90); RED CELL DISTRI WIDTH 15.2 % (0-14.5); WHITE BLOOD COUNT 4.8 10*3/uL (4.8-10.8)
[2021-01-13 17:23] LABS: ALBUMIN 3.3 gm/dl (3.1-4.5); ALKALINE PHOSPHATASE 89 U/L (45-117); BUN 8 mg/dl (7-24); CHLORIDE 113 mmol/L (98-107); LIPASE 131 U/L (73-393); POTASSIUM 2.9 mmol/L (3.5-5.1); SGOT/AST 35 IU/L (3-35); SGPT/ALT 20 U/L (12-78); SODIUM 148 mmol/L (136-145); TOTAL PROTEIN 6.3 gm/dL (6.4-8.2)
== END 2021-01-14 14:04 | disposition home or self-care (01) ==
LOC: ED 16:44
PROVIDERS: Emergency Medicine
DX: F10.129 Alcohol abuse with intoxication, unspecified (principal); Y90.8 Blood alcohol level of 240 mg/100 ml or more

== ENCOUNTER 2021-01-16 16:37 | Emergency (ER) | payer OTHER ==
[2021-01-16 17:05] LABS: BASO % 0.8 % (0.0-1.0); EOS # 0.1 10*3/uL (0.0-0.4); EOS % 1.2 % (1.0-4.0); HEMATOCRIT 34.5 % (42.0-52.0); LYMPH # 1.2 10*3/uL (1.3-4.4); LYMPH % 23.4 % (27.0-41.0); MEAN CELL VOLUME 97.5 fl (80.0-94.0); MEAN CORPUSCULAR HGB 33.9 pg (27.0-31.0); MEAN CORPUSCULAR HGB CONC 34.8 g/dl (33.0-37.0); MEAN PLATELET VOLUME 8.3 fl (9.6-12.3); MONO # 0.8 10*3/uL (0.1-1.0); MONO % 15.3 % (3.0-9.0); NEUT # 2.9 10*3/uL (2.3-7.9); NEUT % 58.7 % (47.0-73.0); PLATELET COUNT AUTOMATED 102 10*3/uL (130-400); RED BLOOD COUNT 3.54 10*6/uL (4.50-5.90); RED CELL DISTRI WIDTH 14.9 % (0-14.5); WHITE BLOOD COUNT 4.9 10*3/uL (4.8-10.8)
[2021-01-16 17:24] LABS: ALBUMIN 3.1 gm/dl (3.1-4.5); ALKALINE PHOSPHATASE 103 U/L (45-117); BUN 14 mg/dl (7-24); CHLORIDE 111 mmol/L (98-107); CREATININE 0.57 mg/dL (0.70-1.30); POTASSIUM 2.9 mmol/L (3.5-5.1); SGOT/AST 27 IU/L (3-35); SGPT/ALT 21 U/L (12-78); SODIUM 147 mmol/L (136-145); TOTAL PROTEIN 6.5 gm/dL (6.4-8.2)
[2021-01-16 17:30] LABS: LIPASE 6716 U/L (73-393)
[2021-01-16 20:07] LABS: BILIRUBIN Negative (Negative); BLOOD Negative (Negative); CLARITY Clear (Clear); COLOR Yellow (Yellow); GLUCOSE Negative (Negative); KETONE Trace (Negative); LEUKO ESTERASE Negative (Negative); NITRITE Negative (Negative); PH 5.5 (4.5-8.0)
[2021-01-16 20:15] LABS: URINE AMPHETAMINES < 1000 (1000ng/ml); URINE BARBITURATES < 200 (200ng/ml); URINE BENZODIAZEPINES > 200 (200ng/ml); URINE CANNABINOIDS (THC) < 50 (50ng/ml); URINE COCAINE < 300 (300ng/ml); URINE METHADONE < 300 (300ng/ml); URINE OPIATES < 300 (300ng/ml)
[2021-01-16 20:16] LABS: URINE PHENCYCLIDINE < 25 (25ng/ml)
[2021-01-16 20:49] LABS: CALCIUM OXALATE CRYSTALS 1+; COARSE GRANULAR CAST 0-2; HYALINE CAST 0-2; MUCOUS 2+; WBC 0-2 wbc/hpf (0-5)
== END 2021-01-17 05:23 | disposition home or self-care (01) ==
LOC: ED 16:37
PROVIDERS: Family Medicine
DX: F10.129 Alcohol abuse with intoxication, unspecified (principal); E87.8 Other disorders of electrolyte and fluid balance, not elsewhere classified; D53.9 Nutritional anemia, unspecified; K85.90 Acute pancreatitis without necrosis or infection, unspecified; Y90.8 Blood alcohol level of 240 mg/100 ml or more

== ENCOUNTER 2021-02-18 15:13 | Emergency (ER) | payer MEDICARE ==
[~2021-02-18] VITALS: Ht 175.2 cm
[~2021-02-18 15:13] MED LIST changes: +VANCOMYCIN HCL250 MG PO; +VITAMIN B-1100 M1 PO; +VITAMIN D350 MC2 PO
[2021-02-18 16:26] LABS: BASO # 0.1 10*3/uL (0.0-0.1); BASO % 0.7 % (0.0-1.0); EOS # 0.1 10*3/uL (0.0-0.4); EOS % 0.4 % (1.0-4.0); LYMPH # 1.2 10*3/uL (1.3-4.4); MEAN CELL VOLUME 95.2 fl (80.0-94.0); MEAN CORPUSCULAR HGB CONC 33.6 g/dl (33.0-37.0); MEAN PLATELET VOLUME 8.4 fl (9.6-12.3); MONO # 0.5 10*3/uL (0.1-1.0); MONO % 4.1 % (3.0-9.0); NEUT # 9.3 10*3/uL (2.3-7.9); PLATELET COUNT AUTOMATED 335 10*3/uL (130-400); RED BLOOD COUNT 4.62 10*6/uL (4.50-5.90); RED CELL DISTRI WIDTH 13.4 % (0-14.5); WHITE BLOOD COUNT 11.2 10*3/uL (4.8-10.8)
[2021-02-18 16:41] LABS: ALBUMIN 3.4 gm/dl (3.1-4.5); ALKALINE PHOSPHATASE 114 U/L (45-117); BUN 13 mg/dl (7-24); CHLORIDE 99 mmol/L (98-107); CREATININE 0.85 mg/dL (0.70-1.30); LIPASE 117 U/L (73-393); POTASSIUM 4.1 mmol/L (3.5-5.1); SGOT/AST 66 IU/L (3-35); SGPT/ALT 37 U/L (12-78); SODIUM 132 mmol/L (136-145); TOTAL PROTEIN 8.1 gm/dL (6.4-8.2)
[2021-02-18 16:42] LABS: TROPONIN I < 0.015 ng/ml (<0.045)
[2021-02-18 22:33] LABS: BUN 15 mg/dl (7-24); CHLORIDE 98 mmol/L (98-107); POTASSIUM 3.8 mmol/L (3.5-5.1); SODIUM 130 mmol/L (136-145)
== END 2021-02-18 22:40 | disposition home or self-care (01) ==
LOC: ED 15:13
PROVIDERS: Emergency Medicine; Internal Medicine
DX: M25.512 Pain in left shoulder (principal); F10.129 Alcohol abuse with intoxication, unspecified; E87.8 Other disorders of electrolyte and fluid balance, not elsewhere classified; E16.2 Hypoglycemia, unspecified; F17.200 Nicotine dependence, unspecified, uncomplicated; Z79.899 Other long term (current) drug therapy; W18.30XA Fall on same level, unspecified, initial encounter; Y93.89 Activity, other specified; Y92.89 Other specified places as the place of occurrence of the external cause; Y99.9 Unspecified external cause status; Y90.9 Presence of alcohol in blood, level not specified

== ENCOUNTER 2021-02-20 13:08 | Emergency (ER) | payer MEDICARE ==
[2021-02-20 14:11] LABS: BASO # 0.1 10*3/uL (0.0-0.1); BASO % 0.7 % (0.0-1.0); EOS # 0.1 10*3/uL (0.0-0.4); EOS % 1.4 % (1.0-4.0); HEMATOCRIT 36.9 % (42.0-52.0); LYMPH # 1.1 10*3/uL (1.3-4.4); LYMPH % 13.8 % (27.0-41.0); MEAN CELL VOLUME 92.5 fl (80.0-94.0); MEAN CORPUSCULAR HGB 31.8 pg (27.0-31.0); MEAN CORPUSCULAR HGB CONC 34.4 g/dl (33.0-37.0); MEAN PLATELET VOLUME 8.9 fl (9.6-12.3); MONO # 0.6 10*3/uL (0.1-1.0); MONO % 7.8 % (3.0-9.0); NEUT # 5.8 10*3/uL (2.3-7.9); NEUT % 75.9 % (47.0-73.0); RED BLOOD COUNT 3.99 10*6/uL (4.50-5.90); RED CELL DISTRI WIDTH 13.2 % (0-14.5); WHITE BLOOD COUNT 7.7 10*3/uL (4.8-10.8)
[2021-02-20 14:17] LABS: PLATELET COUNT AUTOMATED 215 10*3/uL (130-400)
[2021-02-20 14:38] LABS: ALBUMIN 3.1 gm/dl (3.1-4.5); BUN 12 mg/dl (7-24); CHLORIDE 100 mmol/L (98-107); CREATININE 0.68 mg/dL (0.70-1.30); POTASSIUM 2.9 mmol/L (3.5-5.1); SGOT/AST 39 IU/L (3-35); SGPT/ALT 24 U/L (12-78); SODIUM 130 mmol/L (136-145); TOTAL PROTEIN 6.9 gm/dL (6.4-8.2)
[2021-02-20 14:42] LABS: ALKALINE PHOSPHATASE 104 U/L (45-117); CPK 33 U/L (39-308); ETHYL ALCOHOL < 3.0 mg/dl (<3); TROPONIN I < 0.015 ng/ml (<0.045)
[2021-02-20 16:55] LABS: BILIRUBIN Negative (Negative); BLOOD Negative (Negative); CLARITY Clear (Clear); COLOR Dark Yellow (Yellow); GLUCOSE Negative (Negative); KETONE 1+ (Negative); LEUKO ESTERASE Negative (Negative); NITRITE Negative (Negative); PH 6.5 (4.5-8.0); SPECIFIC GRAVITY 1.015 (1.001-1.030)
[2021-02-20 17:03] LABS: URINE AMPHETAMINES < 1000 (1000ng/ml); URINE BARBITURATES < 200 (200ng/ml); URINE BENZODIAZEPINES > 200 (200ng/ml); URINE CANNABINOIDS (THC) < 50 (50ng/ml); URINE COCAINE < 300 (300ng/ml); URINE METHADONE < 300 (300ng/ml); URINE OPIATES < 300 (300ng/ml)
[2021-02-20 17:11] LABS: URINE PHENCYCLIDINE < 25 (25ng/ml)
[2021-02-20 17:21] LABS: MUCOUS TRACE; RBC 0-2 rbc/hpf (0-2)
[2021-02-20] MEDS ORDERED: VISTARIL25 M2 PO ×4 (17:35→17:36)
[2021-02-20] MEDS ORDERED: POTASSIUM CHLO20 ME3 PO ×2 (17:37)
[2021-02-20] MEDS ORDERED: MAGNESIUM400 M1 PO ×2 (17:37)
== END 2021-02-20 17:38 | disposition home or self-care (01) ==
LOC: ED 13:08
PROVIDERS: Emergency Medicine
DX: E87.1 Hypo-osmolality and hyponatremia (principal); E87.6 Hypokalemia; F41.9 Anxiety disorder, unspecified; M54.42 Lumbago with sciatica, left side; G89.29 Other chronic pain; J44.9 Chronic obstructive pulmonary disease, unspecified; K21.9 Gastro-esophageal reflux disease without esophagitis; F32.9 Major depressive disorder, single episode, unspecified; F17.200 Nicotine dependence, unspecified, uncomplicated; Z91.048 Other nonmedicinal substance allergy status; Z79.899 Other long term (current) drug therapy

== ENCOUNTER 2021-02-23 16:56 | Inpatient (IN) | payer MEDICARE ==
[~2021-02-23] VITALS: Ht 175.2 cm; Wt 66.2 kg
[~2021-02-23 16:56] MED LIST changes: +MAGNESIUM400 M1 PO; +POTASSIUM CHLO20 ME3 PO; +VISTARIL25 M2 PO
[2021-02-23 17:02] VITALS: BP 105/72
[2021-02-23 17:36] LABS: BASO # 0.1 10*3/uL (0.0-0.1); EOS # 0.2 10*3/uL (0.0-0.4); EOS % 2.9 % (1.0-4.0); HEMATOCRIT 40.1 % (42.0-52.0); LYMPH # 2.2 10*3/uL (1.3-4.4); LYMPH % 35.7 % (27.0-41.0); MEAN CELL VOLUME 91.1 fl (80.0-94.0); MEAN CORPUSCULAR HGB 31.6 pg (27.0-31.0); MEAN CORPUSCULAR HGB CONC 34.7 g/dl (33.0-37.0); MEAN PLATELET VOLUME 8.9 fl (9.6-12.3); MONO # 0.7 10*3/uL (0.1-1.0); MONO % 10.7 % (3.0-9.0); NEUT # 3.1 10*3/uL (2.3-7.9); NEUT % 49.2 % (47.0-73.0); PLATELET COUNT AUTOMATED 228 10*3/uL (130-400); RED CELL DISTRI WIDTH 13.6 % (0-14.5); WHITE BLOOD COUNT 6.2 10*3/uL (4.8-10.8)
[2021-02-23 17:56] LABS: ALKALINE PHOSPHATASE 113 U/L (45-117); BUN 5 mg/dl (7-24); CHLORIDE 104 mmol/L (98-107); CREATININE 0.73 mg/dL (0.70-1.30); POTASSIUM 2.9 mmol/L (3.5-5.1); SGOT/AST 77 IU/L (3-35); SGPT/ALT 43 U/L (12-78); SODIUM 140 mmol/L (136-145); TOTAL PROTEIN 6.8 gm/dL (6.4-8.2)
[2021-02-23 17:58] LABS: TROPONIN I < 0.015 ng/ml (<0.045)
[2021-02-23 18:54] VITALS: BP 111/79
[2021-02-23 19:50] VITALS: BP 116/82
[2021-02-23 20:00] VITALS: BP 116/82
[2021-02-24 06:14] LABS: ALBUMIN 2.7 gm/dl (3.1-4.5); ALKALINE PHOSPHATASE 103 U/L (45-117); BUN 10 mg/dl (7-24); CHLORIDE 106 mmol/L (98-107); CREATININE 0.95 mg/dL (0.70-1.30); POTASSIUM 3.6 mmol/L (3.5-5.1); SGOT/AST 63 IU/L (3-35); SGPT/ALT 36 U/L (12-78); SODIUM 137 mmol/L (136-145)
[2021-02-24 06:34] LABS: BASO % 0.5 % (0.0-1.0); EOS # 0.2 10*3/uL (0.0-0.4); EOS % 2.8 % (1.0-4.0); HEMATOCRIT 36.1 % (42.0-52.0); LYMPH # 1.6 10*3/uL (1.3-4.4); LYMPH % 20.1 % (27.0-41.0); MEAN CORPUSCULAR HGB 31.7 pg (27.0-31.0); MEAN CORPUSCULAR HGB CONC 33.2 g/dl (33.0-37.0); MEAN PLATELET VOLUME 9.4 fl (9.6-12.3); MONO # 0.8 10*3/uL (0.1-1.0); MONO % 10.3 % (3.0-9.0); NEUT # 5.2 10*3/uL (2.3-7.9); NEUT % 65.4 % (47.0-73.0); PLATELET COUNT AUTOMATED 179 10*3/uL (130-400); RED BLOOD COUNT 3.78 10*6/uL (4.50-5.90); RED CELL DISTRI WIDTH 13.9 % (0-14.5)
[2021-02-24 06:37] LABS: MEAN CELL VOLUME 95.5 fl (80.0-94.0)
[2021-02-24 08:00] VITALS: BP 106/74
[2021-02-24 12:00] VITALS: BP 104/60
[2021-02-24 16:00] VITALS: BP 104/64
[2021-02-24 20:00] VITALS: BP 105/64
[2021-02-25] VITALS: BP 105/69
[2021-02-25 05:42] LABS: ALBUMIN 2.5 gm/dl (3.1-4.5); ALKALINE PHOSPHATASE 130 U/L (45-117); BUN 13 mg/dl (7-24); CHLORIDE 107 mmol/L (98-107); CREATININE 0.64 mg/dL (0.70-1.30); POTASSIUM 3.5 mmol/L (3.5-5.1); SGOT/AST 35 IU/L (3-35); SGPT/ALT 27 U/L (12-78); SODIUM 140 mmol/L (136-145); TOTAL PROTEIN 5.4 gm/dL (6.4-8.2)
[2021-02-25 06:17] LABS: BASO % 0.3 % (0.0-1.0); EOS # 0.2 10*3/uL (0.0-0.4); EOS % 3.7 % (1.0-4.0); HEMATOCRIT 33.8 % (42.0-52.0); LYMPH # 1.5 10*3/uL (1.3-4.4); LYMPH % 26.8 % (27.0-41.0); MEAN CORPUSCULAR HGB 31.6 pg (27.0-31.0); MEAN CORPUSCULAR HGB CONC 32.2 g/dl (33.0-37.0); MEAN PLATELET VOLUME 9.5 fl (9.6-12.3); MONO # 0.6 10*3/uL (0.1-1.0); MONO % 9.8 % (3.0-9.0); NEUT # 3.4 10*3/uL (2.3-7.9); NEUT % 58.9 % (47.0-73.0); PLATELET COUNT AUTOMATED 155 10*3/uL (130-400); RED BLOOD COUNT 3.45 10*6/uL (4.50-5.90); RED CELL DISTRI WIDTH 13.9 % (0-14.5); WHITE BLOOD COUNT 5.7 10*3/uL (4.8-10.8)
[2021-02-25 08:00] VITALS: BP 116/86
[2021-02-25 12:00] VITALS: BP 112/56
[2021-02-25 16:00] VITALS: BP 128/64
== END 2021-02-25 16:20 | disposition home or self-care (01) | DRG 205 ==
LOC: ED 16:56 → 4E 18:24 → EDHOLD 18:24 → 4E 18:52
PROVIDERS: Emergency Medicine; Internal Medicine; Social Worker Clinical; ADMIT Student in an Organized Health Care Education/Training Program; ATTEND Student in an Organized Health Care Education/Training Program
PROC: 4A02XM4 Measurement of Cardiac Total Activity, External Approach (ICD-10-PCS; principal; 2021-02-25)
PROC: 3E073KZ Introduction of Other Diagnostic Substance into Coronary Artery, Percutaneous Approach (ICD-10-PCS; 2021-02-25)
DX: M94.0 Chondrocostal junction syndrome [Tietze] (principal); E43 Unspecified severe protein-calorie malnutrition; E87.2 Acidosis; F10.130 Alcohol abuse with withdrawal, uncomplicated; E87.6 Hypokalemia; R00.0 Tachycardia, unspecified; D64.9 Anemia, unspecified; R73.9 Hyperglycemia, unspecified; R74.01 Elevation of levels of liver transaminase levels; F10.120 Alcohol abuse with intoxication, uncomplicated; Y90.8 Blood alcohol level of 240 mg/100 ml or more; K21.9 Gastro-esophageal reflux disease without esophagitis; M19.90 Unspecified osteoarthritis, unspecified site; M48.061 Spinal stenosis, lumbar region without neurogenic claudication; J44.9 Chronic obstructive pulmonary disease, unspecified; G89.4 Chronic pain syndrome; F43.21 Adjustment disorder with depressed mood; M54.42 Lumbago with sciatica, left side; F17.210 Nicotine dependence, cigarettes, uncomplicated; Z71.6 Tobacco abuse counseling; Z91.09 Other allergy status, other than to drugs and biological substances; Z82.49 Family history of ischemic heart disease and other diseases of the circulatory system; Z80.0 Family history of malignant neoplasm of digestive organs; Z82.0 Family history of epilepsy and other diseases of the nervous system; Z68.21 Body mass index [BMI] 21.0-21.9, adult

== ENCOUNTER 2021-03-09 13:11 | Emergency (ER) | payer MEDICARE ==
[~2021-03-09] VITALS: Ht 175.2 cm; Wt 63.5 kg
[2021-03-09 14:06] LABS: BASO % 0.8 % (0.0-1.0); EOS % 0.6 % (1.0-4.0); HEMATOCRIT 39.5 % (42.0-52.0); LYMPH # 0.8 10*3/uL (1.3-4.4); LYMPH % 16.3 % (27.0-41.0); MEAN CELL VOLUME 95.2 fl (80.0-94.0); MEAN CORPUSCULAR HGB 31.8 pg (27.0-31.0); MEAN CORPUSCULAR HGB CONC 33.4 g/dl (33.0-37.0); MEAN PLATELET VOLUME 9.3 fl (9.6-12.3); MONO # 0.3 10*3/uL (0.1-1.0); MONO % 4.9 % (3.0-9.0); PLATELET COUNT AUTOMATED 88 10*3/uL (130-400); RED BLOOD COUNT 4.15 10*6/uL (4.50-5.90); RED CELL DISTRI WIDTH 14.2 % (0-14.5); WHITE BLOOD COUNT 5.1 10*3/uL (4.8-10.8)
[2021-03-09 14:30] LABS: ALBUMIN 3.4 gm/dl (3.1-4.5); ALKALINE PHOSPHATASE 93 U/L (45-117); BUN 9 mg/dl (7-24); CHLORIDE 100 mmol/L (98-107); CREATININE 0.94 mg/dL (0.70-1.30); LIPASE 75 U/L (73-393); POTASSIUM 2.9 mmol/L (3.5-5.1); SGOT/AST 65 IU/L (3-35); SGPT/ALT 34 U/L (12-78); SODIUM 138 mmol/L (136-145); TOTAL PROTEIN 6.8 gm/dL (6.4-8.2)
[2021-03-09 14:35] LABS: TROPONIN I < 0.015 ng/ml (<0.045)
[2021-03-09 21:13] LABS: POTASSIUM 3.3 mmol/L (3.5-5.1)
== END 2021-03-09 23:27 | disposition home or self-care (01) ==
LOC: ED 13:11
PROVIDERS: Nurse Practitioner Family; Physician Assistant
DX: E86.0 Dehydration (principal); F10.920 Alcohol use, unspecified with intoxication, uncomplicated; E87.6 Hypokalemia; M54.2 Cervicalgia; M25.512 Pain in left shoulder; M54.5 Low back pain

== ENCOUNTER 2021-03-14 12:19 | Emergency (ER) | payer MEDICARE ==
[~2021-03-14] VITALS: Ht 177.8 cm; Wt 81.6 kg
[2021-03-14 12:37] LABS: BASO # 0.1 10*3/uL (0.0-0.1); BASO % 1.7 % (0.0-1.0); EOS # 0.1 10*3/uL (0.0-0.4); EOS % 1.7 % (1.0-4.0); HEMATOCRIT 40.8 % (42.0-52.0); LYMPH # 1.4 10*3/uL (1.3-4.4); LYMPH % 39.5 % (27.0-41.0); MEAN CELL VOLUME 92.9 fl (80.0-94.0); MEAN CORPUSCULAR HGB 31.4 pg (27.0-31.0); MEAN CORPUSCULAR HGB CONC 33.8 g/dl (33.0-37.0); MEAN PLATELET VOLUME 8.1 fl (9.6-12.3); MONO # 0.3 10*3/uL (0.1-1.0); MONO % 9.7 % (3.0-9.0); NEUT # 1.7 10*3/uL (2.3-7.9); NEUT % 47.1 % (47.0-73.0); PLATELET COUNT AUTOMATED 114 10*3/uL (130-400); RED BLOOD COUNT 4.39 10*6/uL (4.50-5.90); RED CELL DISTRI WIDTH 14.4 % (0-14.5); WHITE BLOOD COUNT 3.5 10*3/uL (4.8-10.8)
[2021-03-14 12:54] LABS: ALBUMIN 3.5 gm/dl (3.1-4.5); ALKALINE PHOSPHATASE 92 U/L (45-117); BUN 9 mg/dl (7-24); CHLORIDE 107 mmol/L (98-107); CREATININE 0.73 mg/dL (0.70-1.30); SGOT/AST 73 IU/L (3-35); SGPT/ALT 35 U/L (12-78); SODIUM 144 mmol/L (136-145); TOTAL PROTEIN 7.1 gm/dL (6.4-8.2)
[2021-03-14 12:56] LABS: TROPONIN I < 0.015 ng/ml (<0.045)
== END 2021-03-15 03:41 | disposition home or self-care (01) ==
LOC: ED 12:19
PROVIDERS: Student in an Organized Health Care Education/Training Program
DX: F10.129 Alcohol abuse with intoxication, unspecified (principal); R07.89 Other chest pain; F17.200 Nicotine dependence, unspecified, uncomplicated; Z91.048 Other nonmedicinal substance allergy status; Y90.8 Blood alcohol level of 240 mg/100 ml or more

== ENCOUNTER 2021-03-18 19:18 | Emergency (ER) | payer MEDICARE ==
[~2021-03-18] VITALS: Ht 175.2 cm; Wt 66.7 kg
[2021-03-18 19:38] LABS: BASO % 0.8 % (0.0-1.0); EOS # 0.1 10*3/uL (0.0-0.4); EOS % 1.7 % (1.0-4.0); HEMATOCRIT 41.1 % (42.0-52.0); LYMPH # 1.6 10*3/uL (1.3-4.4); LYMPH % 30.9 % (27.0-41.0); MEAN CELL VOLUME 94.7 fl (80.0-94.0); MEAN CORPUSCULAR HGB 31.6 pg (27.0-31.0); MEAN CORPUSCULAR HGB CONC 33.3 g/dl (33.0-37.0); MEAN PLATELET VOLUME 8.3 fl (9.6-12.3); MONO # 0.4 10*3/uL (0.1-1.0); MONO % 8.2 % (3.0-9.0); NEUT % 58.2 % (47.0-73.0); PLATELET COUNT AUTOMATED 91 10*3/uL (130-400); RED BLOOD COUNT 4.34 10*6/uL (4.50-5.90); RED CELL DISTRI WIDTH 14.5 % (0-14.5); WHITE BLOOD COUNT 5.2 10*3/uL (4.8-10.8)
[2021-03-18 19:55] LABS: ALBUMIN 3.4 gm/dl (3.1-4.5); ALKALINE PHOSPHATASE 108 U/L (45-117); BUN 11 mg/dl (7-24); CHLORIDE 106 mmol/L (98-107); CREATININE 0.96 mg/dL (0.70-1.30); POTASSIUM 2.8 mmol/L (3.5-5.1); SGOT/AST 42 IU/L (3-35); SGPT/ALT 26 U/L (12-78); SODIUM 146 mmol/L (136-145); TOTAL PROTEIN 6.8 gm/dL (6.4-8.2); TROPONIN I < 0.015 ng/ml (<0.045)
== END 2021-03-19 09:15 | disposition home or self-care (01) ==
LOC: ED 19:18
PROVIDERS: Internal Medicine
DX: F10.129 Alcohol abuse with intoxication, unspecified (principal); F17.200 Nicotine dependence, unspecified, uncomplicated; Y90.9 Presence of alcohol in blood, level not specified

== ENCOUNTER 2021-03-23 15:45 | Emergency (ER) | payer MEDICARE ==
[~2021-03-23] VITALS: Ht 167.6 cm; Wt 70.3 kg
[2021-03-23 16:49] LABS: BASO # 0.1 10*3/uL (0.0-0.1); BASO % 1.7 % (0.0-1.0); EOS % 0.7 % (1.0-4.0); HEMATOCRIT 39.9 % (42.0-52.0); LYMPH # 0.8 10*3/uL (1.3-4.4); LYMPH % 26.2 % (27.0-41.0); MEAN CELL VOLUME 94.1 fl (80.0-94.0); MEAN CORPUSCULAR HGB 31.6 pg (27.0-31.0); MEAN CORPUSCULAR HGB CONC 33.6 g/dl (33.0-37.0); MEAN PLATELET VOLUME 8.6 fl (9.6-12.3); MONO # 0.3 10*3/uL (0.1-1.0); MONO % 8.3 % (3.0-9.0); NEUT # 1.9 10*3/uL (2.3-7.9); NEUT % 62.8 % (47.0-73.0); PLATELET COUNT AUTOMATED 69 10*3/uL (130-400); RED BLOOD COUNT 4.24 10*6/uL (4.50-5.90); RED CELL DISTRI WIDTH 14.6 % (0-14.5)
[2021-03-23 17:07] LABS: ALBUMIN 3.5 gm/dl (3.1-4.5); ALKALINE PHOSPHATASE 89 U/L (45-117); BUN 11 mg/dl (7-24); CHLORIDE 101 mmol/L (98-107); CREATININE 1.03 mg/dL (0.70-1.30); POTASSIUM 2.8 mmol/L (3.5-5.1); SGOT/AST 75 IU/L (3-35); SGPT/ALT 35 U/L (12-78); SODIUM 143 mmol/L (136-145); TOTAL PROTEIN 6.8 gm/dL (6.4-8.2)
[2021-03-23 17:11] LABS: TROPONIN I < 0.015 ng/ml (<0.045)
== END 2021-03-24 05:00 | disposition home or self-care (01) ==
LOC: ED 15:45
PROVIDERS: Emergency Medicine
DX: S50.12XA Contusion of left forearm, initial encounter (principal); F10.920 Alcohol use, unspecified with intoxication, uncomplicated; D61.818 Other pancytopenia; E87.6 Hypokalemia; R74.01 Elevation of levels of liver transaminase levels; F17.200 Nicotine dependence, unspecified, uncomplicated; Z91.048 Other nonmedicinal substance allergy status; W19.XXXA Unspecified fall, initial encounter; Y93.89 Activity, other specified; Y92.89 Other specified places as the place of occurrence of the external cause; Y99.8 Other external cause status; Y90.8 Blood alcohol level of 240 mg/100 ml or more

== ENCOUNTER 2021-03-25 16:08 | Emergency (ER) | payer MEDICARE ==
[~2021-03-25] VITALS: Wt 66.7 kg
[2021-03-25 19:48] LABS: BASO % 0.9 % (0.0-1.0); EOS % 1.2 % (1.0-4.0); HEMATOCRIT 35.9 % (42.0-52.0); LYMPH # 1.5 10*3/uL (1.3-4.4); MEAN CELL VOLUME 94.7 fl (80.0-94.0); MEAN CORPUSCULAR HGB 31.7 pg (27.0-31.0); MEAN CORPUSCULAR HGB CONC 33.4 g/dl (33.0-37.0); MEAN PLATELET VOLUME 9.6 fl (9.6-12.3); MONO # 0.4 10*3/uL (0.1-1.0); MONO % 10.5 % (3.0-9.0); NEUT # 1.4 10*3/uL (2.3-7.9); NEUT % 43.1 % (47.0-73.0); PLATELET COUNT AUTOMATED 51 10*3/uL (130-400); RED BLOOD COUNT 3.79 10*6/uL (4.50-5.90); RED CELL DISTRI WIDTH 14.6 % (0-14.5); WHITE BLOOD COUNT 3.3 10*3/uL (4.8-10.8)
[2021-03-25 20:04] LABS: ALBUMIN 3.4 gm/dl (3.1-4.5); ALKALINE PHOSPHATASE 107 U/L (45-117); BUN 14 mg/dl (7-24); CHLORIDE 103 mmol/L (98-107); CREATININE 0.83 mg/dL (0.70-1.30); POTASSIUM 2.8 mmol/L (3.5-5.1); SGOT/AST 78 IU/L (3-35); SGPT/ALT 37 U/L (12-78); SODIUM 144 mmol/L (136-145); TOTAL PROTEIN 6.4 gm/dL (6.4-8.2)
[2021-03-25 20:07] LABS: TROPONIN I < 0.015 ng/ml (<0.045)
[2021-03-25 20:43] LABS: URINE AMPHETAMINES < 1000 (1000ng/ml); URINE BARBITURATES < 200 (200ng/ml); URINE BENZODIAZEPINES < 200 (200ng/ml); URINE CANNABINOIDS (THC) < 50 (50ng/ml); URINE COCAINE < 300 (300ng/ml); URINE METHADONE < 300 (300ng/ml); URINE OPIATES < 300 (300ng/ml)
[2021-03-25 20:44] LABS: URINE PHENCYCLIDINE < 25 (25ng/ml)
== END 2021-03-26 07:58 | disposition home or self-care (01) ==
LOC: ED 16:08
PROVIDERS: Internal Medicine
DX: E87.6 Hypokalemia (principal); F10.129 Alcohol abuse with intoxication, unspecified; J44.9 Chronic obstructive pulmonary disease, unspecified; K21.9 Gastro-esophageal reflux disease without esophagitis; F17.210 Nicotine dependence, cigarettes, uncomplicated

== ENCOUNTER 2021-03-28 10:37 | Emergency (ER) | payer MEDICARE ==
[2021-03-28 10:55] LABS: BASO % 1.2 % (0.0-1.0); EOS # 0.1 10*3/uL (0.0-0.4); EOS % 1.8 % (1.0-4.0); HEMATOCRIT 36.1 % (42.0-52.0); LYMPH # 1.1 10*3/uL (1.3-4.4); LYMPH % 33.8 % (27.0-41.0); MEAN CELL VOLUME 93.5 fl (80.0-94.0); MEAN CORPUSCULAR HGB 31.3 pg (27.0-31.0); MEAN CORPUSCULAR HGB CONC 33.5 g/dl (33.0-37.0); MEAN PLATELET VOLUME 8.5 fl (9.6-12.3); MONO # 0.4 10*3/uL (0.1-1.0); MONO % 10.8 % (3.0-9.0); NEUT # 1.7 10*3/uL (2.3-7.9); NEUT % 52.1 % (47.0-73.0); PLATELET COUNT AUTOMATED 62 10*3/uL (130-400); RED BLOOD COUNT 3.86 10*6/uL (4.50-5.90); RED CELL DISTRI WIDTH 14.4 % (0-14.5); WHITE BLOOD COUNT 3.3 10*3/uL (4.8-10.8)
[2021-03-28 11:10] LABS: ALBUMIN 3.4 gm/dl (3.1-4.5); ALKALINE PHOSPHATASE 92 U/L (45-117); BUN 15 mg/dl (7-24); CHLORIDE 105 mmol/L (98-107); CREATININE 0.67 mg/dL (0.70-1.30); POTASSIUM 2.6 mmol/L (3.5-5.1); SGOT/AST 67 IU/L (3-35); SGPT/ALT 37 U/L (12-78); SODIUM 144 mmol/L (136-145); TOTAL PROTEIN 6.5 gm/dL (6.4-8.2)
[2021-03-28 16:52] LABS: BILIRUBIN Negative (Negative); BLOOD Negative (Negative); CLARITY Cloudy (Clear); COLOR Yellow (Yellow); GLUCOSE Negative (Negative); KETONE Trace (Negative); LEUKO ESTERASE Negative (Negative); NITRITE Negative (Negative); PH 5.5 (4.5-8.0); SPECIFIC GRAVITY 1.025 (1.001-1.030)
[2021-03-28 16:59] LABS: URINE AMPHETAMINES < 1000 (1000ng/ml); URINE BARBITURATES < 200 (200ng/ml); URINE BENZODIAZEPINES < 200 (200ng/ml); URINE CANNABINOIDS (THC) < 50 (50ng/ml); URINE COCAINE < 300 (300ng/ml); URINE METHADONE < 300 (300ng/ml); URINE OPIATES < 300 (300ng/ml)
[2021-03-28 17:00] LABS: BACTERIA 4+; EPITHELIAL CELLS 0-2; MUCOUS TRACE; RBC 0-2 rbc/hpf (0-2); WBC 0-2 wbc/hpf (0-5)
[2021-03-28 17:01] LABS: URINE PHENCYCLIDINE < 25 (25ng/ml)
[2021-03-28 18:53] LABS: BUN 14 mg/dl (7-24); CHLORIDE 106 mmol/L (98-107); CREATININE 0.79 mg/dL (0.70-1.30); SODIUM 142 mmol/L (136-145)
== END 2021-03-29 00:59 | disposition home or self-care (01) ==
LOC: ED 10:37
PROVIDERS: Emergency Medicine
DX: F10.129 Alcohol abuse with intoxication, unspecified (principal); E87.6 Hypokalemia

== ENCOUNTER 2021-04-14 18:49 | Emergency (ER) | payer MEDICARE ==
[2021-04-14 19:27] LABS: BASO % 0.9 % (0.0-1.0); EOS % 0.6 % (1.0-4.0); HEMATOCRIT 31.4 % (42.0-52.0); LYMPH # 0.9 10*3/uL (1.3-4.4); LYMPH % 26.3 % (27.0-41.0); MEAN CELL VOLUME 93.5 fl (80.0-94.0); MEAN CORPUSCULAR HGB 31.3 pg (27.0-31.0); MEAN CORPUSCULAR HGB CONC 33.4 g/dl (33.0-37.0); MEAN PLATELET VOLUME 8.6 fl (9.6-12.3); MONO # 0.3 10*3/uL (0.1-1.0); MONO % 9.6 % (3.0-9.0); NEUT # 2.1 10*3/uL (2.3-7.9); PLATELET COUNT AUTOMATED 56 10*3/uL (130-400); RED BLOOD COUNT 3.36 10*6/uL (4.50-5.90); RED CELL DISTRI WIDTH 14.4 % (0-14.5); WHITE BLOOD COUNT 3.4 10*3/uL (4.8-10.8)
[2021-04-14 19:51] LABS: ALBUMIN 3.6 gm/dl (3.1-4.5); ALKALINE PHOSPHATASE 67 U/L (45-117); BUN 12 mg/dl (7-24); CHLORIDE 101 mmol/L (98-107); CREATININE 0.75 mg/dL (0.70-1.30); POTASSIUM 2.6 mmol/L (3.5-5.1); SGOT/AST 109 IU/L (3-35); SGPT/ALT 47 U/L (12-78); SODIUM 142 mmol/L (136-145); TOTAL PROTEIN 6.3 gm/dL (6.4-8.2)
== END 2021-04-15 05:51 | disposition home or self-care (01) ==
LOC: ED 18:49
PROVIDERS: Internal Medicine
DX: S00.93XA Contusion of unspecified part of head, initial encounter (principal); S40.022A Contusion of left upper arm, initial encounter; S40.021A Contusion of right upper arm, initial encounter; S80.12XA Contusion of left lower leg, initial encounter; S80.11XA Contusion of right lower leg, initial encounter; M54.2 Cervicalgia; E87.6 Hypokalemia; R74.01 Elevation of levels of liver transaminase levels; F10.920 Alcohol use, unspecified with intoxication, uncomplicated; D61.818 Other pancytopenia; F17.200 Nicotine dependence, unspecified, uncomplicated; W19.XXXA Unspecified fall, initial encounter; Y93.89 Activity, other specified; Y92.89 Other specified places as the place of occurrence of the external cause; Y99.8 Other external cause status; Y90.8 Blood alcohol level of 240 mg/100 ml or more

== ENCOUNTER 2021-04-18 15:05 | Emergency (ER) | payer MEDICARE ==
[~2021-04-18] VITALS: Ht 175.2 cm; Wt 63.5 kg
[2021-04-18 15:25] LABS: BASO % 0.3 % (0.0-1.0); EOS % 0.3 % (1.0-4.0); HEMATOCRIT 31.3 % (42.0-52.0); LYMPH # 0.7 10*3/uL (1.3-4.4); LYMPH % 17.2 % (27.0-41.0); MEAN CELL VOLUME 93.4 fl (80.0-94.0); MEAN CORPUSCULAR HGB 31.3 pg (27.0-31.0); MEAN CORPUSCULAR HGB CONC 33.5 g/dl (33.0-37.0); MEAN PLATELET VOLUME 9.8 fl (9.6-12.3); MONO # 0.4 10*3/uL (0.1-1.0); MONO % 9.3 % (3.0-9.0); NEUT # 2.8 10*3/uL (2.3-7.9); NEUT % 72.6 % (47.0-73.0); PLATELET COUNT AUTOMATED 64 10*3/uL (130-400); RED BLOOD COUNT 3.35 10*6/uL (4.50-5.90); RED CELL DISTRI WIDTH 14.3 % (0-14.5); WHITE BLOOD COUNT 3.8 10*3/uL (4.8-10.8)
[2021-04-18 15:40] LABS: ALBUMIN 3.4 gm/dl (3.1-4.5); ALKALINE PHOSPHATASE 63 U/L (45-117); BUN 7 mg/dl (7-24); CHLORIDE 92 mmol/L (98-107); CREATININE 0.73 mg/dL (0.70-1.30); SGOT/AST 66 IU/L (3-35); SGPT/ALT 34 U/L (12-78); SODIUM 136 mmol/L (136-145); TOTAL PROTEIN 6.4 gm/dL (6.4-8.2)
[2021-04-18 15:43] LABS: ETHYL ALCOHOL < 3.0 mg/dl (<3)
[2021-04-18 15:47] LABS: POTASSIUM 2.4 mmol/L (3.5-5.1)
[2021-04-18 18:41] LABS: BUN 9 mg/dl (7-24); CHLORIDE 90 mmol/L (98-107); CREATININE 0.47 mg/dL (0.70-1.30); SODIUM 136 mmol/L (136-145)
[2021-04-18 18:43] LABS: POTASSIUM 2.3 mmol/L (3.5-5.1)
[2021-04-19 02:53] LABS: BILIRUBIN Negative (Negative); BLOOD Negative (Negative); CLARITY Clear (Clear); COLOR Yellow (Yellow); GLUCOSE Negative (Negative); KETONE Negative (Negative); LEUKO ESTERASE 1+ (Negative); NITRITE Negative (Negative); SPECIFIC GRAVITY <= 1.005 (1.001-1.030)
[2021-04-19 03:02] LABS: URINE AMPHETAMINES < 1000 (1000ng/ml); URINE BARBITURATES < 200 (200ng/ml); URINE BENZODIAZEPINES < 200 (200ng/ml); URINE CANNABINOIDS (THC) < 50 (50ng/ml); URINE COCAINE < 300 (300ng/ml); URINE METHADONE < 300 (300ng/ml); URINE OPIATES < 300 (300ng/ml)
[2021-04-19 03:04] LABS: BACTERIA 1+
[2021-04-19 03:13] LABS: URINE PHENCYCLIDINE < 25 (25ng/ml)
[2021-04-19 07:24] LABS: BUN 7 mg/dl (7-24); CHLORIDE 98 mmol/L (98-107); CREATININE 0.77 mg/dL (0.70-1.30); SODIUM 141 mmol/L (136-145)
== END 2021-04-19 10:57 | disposition home or self-care (01) ==
LOC: ED 15:05
PROVIDERS: Emergency Medicine
DX: S00.11XA Contusion of right eyelid and periocular area, initial encounter (principal); F10.239 Alcohol dependence with withdrawal, unspecified; R19.7 Diarrhea, unspecified; R25.1 Tremor, unspecified; M25.561 Pain in right knee; M25.562 Pain in left knee; M19.90 Unspecified osteoarthritis, unspecified site; J44.9 Chronic obstructive pulmonary disease, unspecified; K21.9 Gastro-esophageal reflux disease without esophagitis; F32.9 Major depressive disorder, single episode, unspecified; E44.1 Mild protein-calorie malnutrition; F17.200 Nicotine dependence, unspecified, uncomplicated; Y90.0 Blood alcohol level of less than 20 mg/100 ml; W19.XXXA Unspecified fall, initial encounter; Y93.89 Activity, other specified; Y92.89 Other specified places as the place of occurrence of the external cause; Y99.8 Other external cause status

== ENCOUNTER 2021-05-06 17:31 | Emergency (ER) | payer MEDICARE | END 2021-05-06 20:17 | disposition left against medical advice (07) | LOC: ED 17:31 | DX: R10.9 Unspecified abdominal pain (principal); Z53.21 Procedure and treatment not carried out due to patient leaving prior to being seen by health care provider ==

== ENCOUNTER 2021-05-23 13:24 | Emergency (ER) | payer MEDICARE ==
[2021-05-23 14:01] LABS: HEMATOCRIT 26.8 % (42.0-52.0); MEAN CELL VOLUME 96.4 fl (80.0-94.0); MEAN CORPUSCULAR HGB 31.7 pg (27.0-31.0); MEAN CORPUSCULAR HGB CONC 32.8 g/dl (33.0-37.0); MEAN PLATELET VOLUME 10.7 fl (9.6-12.3); NUCLEATED RED BLOOD CELL 0.1 10*3/uL (0.0-0.0); NUCLEATED RED BLOOD CELL 2.4 % (0.0-0.0); PLATELET COUNT AUTOMATED 47 10*3/uL (130-400); RED BLOOD COUNT 2.78 10*6/uL (4.50-5.90); RED CELL DISTRI WIDTH 13.2 % (0-14.5); WHITE BLOOD COUNT 5.5 10*3/uL (4.8-10.8)
[2021-05-23 14:15] LABS: ALBUMIN 3.8 gm/dl (3.1-4.5); ALKALINE PHOSPHATASE 66 U/L (45-117); BUN 40 mg/dl (7-24); CHLORIDE 92 mmol/L (98-107); CREATININE 1.78 mg/dL (0.70-1.30); POTASSIUM 3.5 mmol/L (3.5-5.1); SGOT/AST 119 IU/L (3-35); SGPT/ALT 41 U/L (12-78); SODIUM 134 mmol/L (136-145); TOTAL PROTEIN 7.2 gm/dL (6.4-8.2)
[2021-05-23 14:19] LABS: ACT PARTIAL THROMBO TIME 30.2 SECONDS (20.0-32.1)
[2021-05-23 14:20] LABS: BURR CELLS FEW; PLATELET SUFFICIENCY LOW (NORMAL); TOTAL CELLS COUNTED 100 #CELLS
[2021-05-23 14:33] LABS: CPK 1422 U/L (39-308); TROPONIN I < 0.015 ng/ml (<0.045)
== END 2021-05-23 17:50 | disposition short-term general hospital (02) ==
LOC: ED 13:24
PROVIDERS: Emergency Medicine
DX: S06.5X0A Traumatic subdural hemorrhage without loss of consciousness, initial encounter (principal); S06.6X9A Traumatic subarachnoid hemorrhage with loss of consciousness of unspecified duration, initial encounter; N17.9 Acute kidney failure, unspecified; J44.1 Chronic obstructive pulmonary disease with (acute) exacerbation; M62.82 Rhabdomyolysis; M19.90 Unspecified osteoarthritis, unspecified site; K21.9 Gastro-esophageal reflux disease without esophagitis; F32.9 Major depressive disorder, single episode, unspecified; F17.210 Nicotine dependence, cigarettes, uncomplicated; W13.3XXA Fall through floor, initial encounter; Y93.89 Activity, other specified; Y92.098 Other place in other non-institutional residence as the place of occurrence of the external cause; Y99.8 Other external cause status

== ENCOUNTER 2021-06-27 06:52 | Emergency (ER) | payer MEDICARE ==
[~2021-06-27] VITALS: Ht 175.2 cm; Wt 68.0 kg
[2021-06-27 07:24] LABS: BASO % 0.3 % (0.0-1.0); EOS % 1.2 % (1.0-4.0); HEMATOCRIT 36.9 % (42.0-52.0); LYMPH # 0.8 10*3/uL (1.3-4.4); LYMPH % 23.5 % (27.0-41.0); MEAN CELL VOLUME 89.3 fl (80.0-94.0); MEAN CORPUSCULAR HGB 31.5 pg (27.0-31.0); MEAN CORPUSCULAR HGB CONC 35.2 g/dl (33.0-37.0); MEAN PLATELET VOLUME 9.2 fl (9.6-12.3); MONO # 0.2 10*3/uL (0.1-1.0); NEUT # 2.3 10*3/uL (2.3-7.9); NEUT % 67.7 % (47.0-73.0); PLATELET COUNT AUTOMATED 105 10*3/uL (130-400); RED BLOOD COUNT 4.13 10*6/uL (4.50-5.90); RED CELL DISTRI WIDTH 12.7 % (0-14.5); WHITE BLOOD COUNT 3.5 10*3/uL (4.8-10.8)
[2021-06-27 07:42] LABS: ALBUMIN 3.1 gm/dl (3.1-4.5); ALKALINE PHOSPHATASE 96 U/L (45-117); BUN 14 mg/dl (7-24); CHLORIDE 95 mmol/L (98-107); CPK 64 U/L (39-308); CREATININE 0.78 mg/dL (0.70-1.30); POTASSIUM 2.9 mmol/L (3.5-5.1); SGOT/AST 148 IU/L (3-35); SGPT/ALT 82 U/L (12-78); SODIUM 134 mmol/L (136-145); TOTAL PROTEIN 6.5 gm/dL (6.4-8.2)
[2021-06-27 07:55] LABS: ETHYL ALCOHOL < 3.0 mg/dl (<3)
[2021-06-27 07:57] LABS: BILIRUBIN Negative (Negative); BLOOD Negative (Negative); CLARITY Cloudy (Clear); COLOR Yellow (Yellow); GLUCOSE Negative (Negative); KETONE 2+ (Negative); LEUKO ESTERASE Negative (Negative); NITRITE Negative (Negative)
[2021-06-27 08:12] LABS: BACTERIA 1+; MUCOUS 2+; WBC 0-2 wbc/hpf (0-5)
[2021-06-27 13:09] LABS: BUN 12 mg/dl (7-24); CHLORIDE 102 mmol/L (98-107); POTASSIUM 3.7 mmol/L (3.5-5.1); SODIUM 137 mmol/L (136-145)
== END 2021-06-27 13:43 | disposition home or self-care (01) ==
LOC: ED 06:52
PROVIDERS: Emergency Medicine
DX: E87.6 Hypokalemia (principal); J44.9 Chronic obstructive pulmonary disease, unspecified; F17.210 Nicotine dependence, cigarettes, uncomplicated; K21.9 Gastro-esophageal reflux disease without esophagitis

== ENCOUNTER 2021-08-11 08:38 | Emergency (ER) | payer MEDICARE ==
[~2021-08-11] VITALS: Ht 175.2 cm; Wt 72.6 kg
[~2021-08-11 08:38] MED LIST changes: +DECADRON6 M1 PO; +ZITHROMAX250 MG PO
[2021-08-11 09:26] LABS: BASO % 0.1 % (0.0-1.0); HEMATOCRIT 36.6 % (42.0-52.0); LYMPH # 0.7 10*3/uL (1.3-4.4); LYMPH % 9.2 % (27.0-41.0); MEAN CELL VOLUME 92.4 fl (80.0-94.0); MEAN CORPUSCULAR HGB 32.6 pg (27.0-31.0); MEAN CORPUSCULAR HGB CONC 35.2 g/dl (33.0-37.0); MEAN PLATELET VOLUME 8.8 fl (9.6-12.3); MONO # 0.6 10*3/uL (0.1-1.0); MONO % 8.2 % (3.0-9.0); NEUT # 6.3 10*3/uL (2.3-7.9); NEUT % 82.1 % (47.0-73.0); PLATELET COUNT AUTOMATED 154 10*3/uL (130-400); RED BLOOD COUNT 3.96 10*6/uL (4.50-5.90); RED CELL DISTRI WIDTH 15.1 % (0-14.5); WHITE BLOOD COUNT 7.7 10*3/uL (4.8-10.8)
[2021-08-11 09:42] LABS: ALBUMIN 3.5 gm/dl (3.1-4.5); ALKALINE PHOSPHATASE 73 U/L (45-117); BUN 15 mg/dl (7-24); CHLORIDE 104 mmol/L (98-107); CREATININE 0.77 mg/dL (0.70-1.30); POTASSIUM 3.1 mmol/L (3.5-5.1); SGOT/AST 21 IU/L (3-35); SGPT/ALT 18 U/L (12-78); SODIUM 141 mmol/L (136-145); TOTAL PROTEIN 7.1 gm/dL (6.4-8.2)
== END 2021-08-11 10:33 | disposition home or self-care (01) ==
LOC: ED 08:38
PROVIDERS: Emergency Medicine
DX: J06.9 Acute upper respiratory infection, unspecified (principal); F17.200 Nicotine dependence, unspecified, uncomplicated

== ENCOUNTER 2021-09-11 10:50 | Emergency (ER) | payer MEDICARE ==
[~2021-09-11] VITALS: Ht 175.2 cm; Wt 71.7 kg
[2021-09-11 11:52] LABS: BASO % 0.5 % (0.0-1.0); EOS % 0.5 % (1.0-4.0); HEMATOCRIT 39.3 % (42.0-52.0); LYMPH # 1.2 10*3/uL (1.3-4.4); LYMPH % 14.8 % (27.0-41.0); MEAN CELL VOLUME 90.3 fl (80.0-94.0); MEAN CORPUSCULAR HGB 32.2 pg (27.0-31.0); MEAN CORPUSCULAR HGB CONC 35.6 g/dl (33.0-37.0); MEAN PLATELET VOLUME 8.6 fl (9.6-12.3); MONO # 0.6 10*3/uL (0.1-1.0); MONO % 6.8 % (3.0-9.0); NEUT # 6.4 10*3/uL (2.3-7.9); NEUT % 77.3 % (47.0-73.0); PLATELET COUNT AUTOMATED 169 10*3/uL (130-400); RED BLOOD COUNT 4.35 10*6/uL (4.50-5.90); WHITE BLOOD COUNT 8.3 10*3/uL (4.8-10.8)
[2021-09-11 12:10] LABS: ALBUMIN 3.4 gm/dl (3.1-4.5); ALKALINE PHOSPHATASE 83 U/L (45-117); BUN 7 mg/dl (7-24); CHLORIDE 104 mmol/L (98-107); CREATININE 0.76 mg/dL (0.70-1.30); POTASSIUM 3.2 mmol/L (3.5-5.1); SGOT/AST 18 IU/L (3-35); SGPT/ALT 15 U/L (12-78); SODIUM 139 mmol/L (136-145); TOTAL PROTEIN 6.7 gm/dL (6.4-8.2)
== END 2021-09-11 14:44 | disposition home or self-care (01) ==
LOC: ED 10:50
PROVIDERS: Nurse Practitioner Family
DX: E87.6 Hypokalemia (principal); F41.9 Anxiety disorder, unspecified; R06.02 Shortness of breath; R05.9 Cough, unspecified

== ENCOUNTER 2021-10-11 19:13 | Emergency (ER) | payer MEDICARE ==
[2021-10-11 19:49] LABS: BASO % 0.5 % (0.0-1.0); EOS % 0.5 % (1.0-4.0); HEMATOCRIT 45.7 % (42.0-52.0); LYMPH # 1.3 10*3/uL (1.3-4.4); LYMPH % 20.8 % (27.0-41.0); MEAN CELL VOLUME 92.1 fl (80.0-94.0); MEAN CORPUSCULAR HGB CONC 33.7 g/dl (33.0-37.0); MEAN PLATELET VOLUME 8.5 fl (9.6-12.3); MONO # 0.2 10*3/uL (0.1-1.0); MONO % 3.1 % (3.0-9.0); NEUT # 4.8 10*3/uL (2.3-7.9); NEUT % 74.8 % (47.0-73.0); PLATELET COUNT AUTOMATED 86 10*3/uL (130-400); RED BLOOD COUNT 4.96 10*6/uL (4.50-5.90); RED CELL DISTRI WIDTH 12.7 % (0-14.5); WHITE BLOOD COUNT 6.4 10*3/uL (4.8-10.8)
[2021-10-11 19:54] LABS: ALKALINE PHOSPHATASE 66 U/L (45-117); BUN 16 mg/dl (7-24); CHLORIDE 104 mmol/L (98-107); CREATININE 0.79 mg/dL (0.70-1.30); POTASSIUM 3.7 mmol/L (3.5-5.1); SGOT/AST 44 IU/L (3-35); SGPT/ALT 22 U/L (12-78); SODIUM 139 mmol/L (136-145); TOTAL PROTEIN 7.7 gm/dL (6.4-8.2)
== END 2021-10-12 06:28 | disposition home or self-care (01) ==
LOC: ED 19:13
PROVIDERS: Internal Medicine
DX: R07.9 Chest pain, unspecified (principal); F10.929 Alcohol use, unspecified with intoxication, unspecified; Y90.9 Presence of alcohol in blood, level not specified